=== PATIENT | female | born 1990 | race African-American/Black ===

== ENCOUNTER 2020-07-27 17:34 | Emergency (ER) | payer MEDICAID, SELFPAY ==
[2020-07-27 19:23] VITALS: BP 166/85; PULSE 88; RESP 16; TEMP 35.7; O2SAT 100; BMI 36.6
[2020-07-27 20:15] LABS: Glucose Urine UA NEG (NEG); Leukocyte Esterase Urine NEG (NEG); Nitrite Urine NEG (NEG); Specific Gravity - Urine >= 1.030 (1.005-1.025); Urine Blood NEG (NEG); Urine Ketones NEG (NEG); Urine Protein NEG (NEG-TRACE)
[2020-07-27] MEDS: cefTRIAXone sodium 250 MG, Lidocaine HCl 1 % MPF 0.9 ML IM (20:16)
[2020-07-27] MEDS: Azithromycin 500 MG TABLET 1000 MG PO (20:16)
[2020-07-27 20:17] LABS: Appearance Urine CLEAR; Color Urine YELLOW
[2020-07-27 20:18] LABS: UPreg QC Valid YES; Urine Pregnancy NEGATIVE (NEGATIVE)
--- NOTE | 2020-07-27 20:22 | ED.FEMALEGU ---
HPI - Female Genitourinary General Chief complaint: Urogenital-Female Stated complaint: STD check Time Seen by Provider: 07/27/20 19:58 Source: patient Mode of arrival: ambulatory Limitations: no limitations History of Present Illness HPI Narrative: Patient presents to ED for STD check. Patient states she is asymptomatic. Patient states she came today to be evaluated for STD because her boyfriend told her today that he was positive for chlamydia. Patient denies any vaginal discharge, vaginal bleeding, vaginal lesions, abdominal pain, nausea, vomiting, fever, chills, or flank pain. Related Data Allergies Allergy/AdvReac Type Severity Reaction Status Date / Time No Known Allergies Allergy Verified 07/27/20 19:58 Review of Systems Review of Systems: Yes all other systems are reviewed and are negative Constitutional: Constitutional: Reports as per HPI and Reports no additional constitutional complaints Eyes: Eyes: Reports as per HPI and Reports no additional eye complaints ENT: Reports system reviewed and no additional complaints, except as documented and Reports as per HPI Cardiovascular: Cardiovascular: Reports as per HPI and Reports no additional cardiovascular complaints Respiratory: Respiratory: Reports as per HPI and Reports no additional respiratory complaints Gastrointestinal: Gastrointestinal: Reports as per HPI and Reports no additional gastrointestinal complaints Musculoskeletal: Musculoskeletal: Reports no additional musculoskeletal complaints and Reports as per HPI Neurologic: Reports system reviewed and no additional complaints, except as documented and Reports as per HPI Psychiatric: Psychiatric: Reports no additional psychiatric complaints and Reports as per HPI [facility] Social History Social History Alcohol intake: never Smoking Status: Current every day smoker Use of substances other than those prescribed or required for medical reasons: No Advance Directives: No Advance Directives Information Provided: Yes Physical Exam Vital Signs: Vital Signs: Last Vital Signs Temp 96.3 F L 07/27/20 19:23 Pulse 88 07/27/20 19:23 Resp 16 07/27/20 19:23 BP 166/85 H 07/27/20 19:23 Pulse Ox 100 07/27/20 19:23 Body Mass Index 36.6 Const: General: cooperative, healthy appearing, comfortable, no acute distress, well developed, alert, awake and Physically active Orientation/consciousness: oriented to person, oriented to place and patient oriented x3 HENMT: Head: Yes normal to inspection and Yes No palpable skull fracture present Eyes: General: appearance normal, both eyes and all related structures Neck: Neck: Yes normal visual inspection and Yes full ROM Chest: Chest palpation & inspection: normal inspection of the chest and normal palpation of entire chest wall Resp: Effort & Inspection: normal respiratory effort and able to speak in complete sentences Cardio: Jugular venous distension: no JVD Heart sounds: S1 normal heart sound present and S2 normal heart sound present GI: Inspection: Yes normal to inspection Palpation (GI): Soft to palpation, not firm, nontender, no guarding and not rigid : General: No CVA tenderness and Yes no CVA tenderness Back/Spine/Pelvis: Back: no CVA tenderness, No CVA tenderness and No back tenderness Skin: General skin exam: no rashes or lesions noted and elasticity normal Neuro: General: oriented to person, oriented to place, oriented to time, patient oriented x3, gait normal and CN's II-XI intact bilaterally Cranial nerves: Yes CN's II-XII intact bilaterally Extrem: General: Yes normal to inspection and Yes full ROM Psych: Appearance: grossly normal, well kempt and not disheveled Course Course Course Narrative: Patient will be treated empirically for STIs. Patient given sample for chlamydia gonorrhea. Reevaluation(s) Reevaluation #1: Urinalysis negative for infection or . Time: 20:25 MDM - Female Genitourinary MDM Narrative Medical decision making narrative: STI exposure Lab Data Labs: Lab Results 07/27/20 Range/Units 20:07 Urine Color YELLOW Urine Appearance CLEAR Urine pH 6.0 (5.0-8.0) Ur Specific [place] >= 1.030 H (1.005-1.025) Urine Protein NEG (NEG-TRACE) MG/DL Urine Glucose (UA) NEG (NEG) MG/DL Urine Ketones NEG (NEG) MG/DL Urine Blood NEG (NEG) Urine Nitrite NEG (NEG) Ur Leukocyte Esterase NEG (NEG) Urine Test NEGATIVE (NEGATIVE) Discharge Plan Discharge Clinical Impression: STI (sexually transmitted infection) Patient Disposition: Home, Self-Care Instructions: Sexually Transmitted Diseases (ED) Additional Instructions: Return to the ED immediately for any vaginal bleeding, vaginal lesions, vaginal discharge, abdominal pain, flank pain, fever, chills, or any other concerning symptoms. Please follow-up with the PCP. Interventions: ED Discharge Assessment Last Done: 07/27/20 20:48 Discharge Date/Time: 07/27/20 20:50 Print Language: Vietnamese
[2020-08-21 09:15] LABS: CT PCR NOT DETECTED (Not Detect.); NG PCR NOT DETECTED (Not Detect.)
== END 2020-07-27 20:50 | disposition home or self-care (01) ==
PROVIDERS: Physician Assistant; Emergency Provider Emergency Medicine; PCP Nurse Practitioner Family
DX: Z20.2 Contact with and (suspected) exposure to infections with a predominantly sexual mode of transmission (principal); F17.200 Nicotine dependence, unspecified, uncomplicated
CPT/HCPCS: 81003; 81025; 87491; 87591; 96372; 99284; J0696

== ENCOUNTER 2020-08-27 21:20 | Emergency (ER) | payer MEDICAID, SELFPAY ==
[2020-08-27 21:40] VITALS: BP 131/86; BP 190/40; PULSE 103; PULSE 111; RESP 19; TEMP 36.6; O2SAT 98; BMI 30.9
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
== END 2020-08-27 23:53 | disposition home or self-care (01) ==
PROVIDERS: Emergency Provider Emergency Medicine
DX: F10.929 Alcohol use, unspecified with intoxication, unspecified (principal); Y90.9 Presence of alcohol in blood, level not specified; F43.9 Reaction to severe stress, unspecified; F17.200 Nicotine dependence, unspecified, uncomplicated; Z71.6 Tobacco abuse counseling
CPT/HCPCS: 99284; 99285

== ENCOUNTER 2023-03-05 22:59 | Inpatient (IN) | payer MEDICAID, OTHER, SELFPAY ==
--- NOTE | ~2023-03-05 | XR_ITS ---
EXAMINATION: XR ANKLE, RIGHT CLINICAL INFORMATION: Injury. Surgery. COMPARISON: None available. TECHNIQUE: AP, lateral, and mortise views of the right ankle. FINDINGS: Plate and screw fixation hardware at the distal tibia and fibula. Cannulated screws at the medial malleolus. Hardware appears intact. Alignment is grossly maintained. 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 Diffuse soft tissue swelling at the ankle. XR/XR ankle RT min 3V IMPRESSION: Intact hardware at the distal tibia and fibula. Alignment is grossly maintained.
[2023-03-05 23:08] VITALS: BP 142/86; PULSE 114; O2SAT 97
[2023-03-06 00:08] VITALS: BP 120/72; PULSE 110; RESP 16; TEMP 36.4; O2SAT 98; BMI 39.9
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
[2023-03-06 01:07] LABS: Hemoglobin 13.6 g/dl (12.0-16.0); Mean Corpuscular HGB Conc 33.2 g/dl (31.0-35.0); Mean Corpuscular Hemoglobin 31.1 pg (27.0-33.0); Mean Corpuscular Volume 93.6 fL (80.0-98.0); Mean Platelet Volume 9.6 fL (9.4-12.3); Platelet Count 335 X10*3/uL (160-400); Red Blood Count 4.38 X10*6/uL (4.20-5.50); Red Cell Distribution Width 14.7 % (11.0-16.0); White Blood Count 8.1 X10*3/uL (4.8-10.8)
[2023-03-06 01:26] LABS: Ethanol 69 mg/dL
[2023-03-06 01:50] LABS: Alanine Aminotransferase 53 U/L (0-31); Alkaline Phosphatase 41 U/L (39-117); Anion Gap 18 (12-20); Aspartate Amino Transferase 42 U/L (5-31); Bilirubin Total 0.5 mg/dL (0.0-1.0); Blood Urea Nitrogen 11 mg/dL (9-16); Calcium 10.3 mg/dL (8.4-10.2); Carbon Dioxide 25 mmol/L (22-29); Chloride 102 mmol/L (96-108); Glucose Random 103 mg/dL (60-115); Potassium 4.1 mmol/L (3.3-5.1); Sodium 141 mmol/L (135-145); Total Protein 8.4 g/dL (6.5-8.0)
[2023-03-06 02:19] LABS: Creatinine Clr Calc Pharmacy 93.5; Estimated Glomerular Filt Rate > 60
[2023-03-06 02:21] VITALS: BP 106/71; PULSE 99; RESP 16; TEMP 37.3; O2SAT 99
--- NOTE | 2023-03-06 06:44 | PC.NURSE ---
Patient just got transferred from main Ed, ambulates steady with walker, care consult ordered/pending evaluation, behavior non concerning, urine pending, patient currently not on any medication, VSS, will continue to monitor
--- NOTE | 2023-03-06 09:12 | PC.NURSE ---
Pt in bed sleeping. Enc. pt to get OOB and shower.
[2023-03-06 09:40] LABS: Appearance Urine Cloudy; Color Urine Yellow; Glucose Urine UA Negative (Negative); Leukocyte Esterase Urine Negative (Negative); Nitrite Urine Negative (Negative); Specific Gravity - Urine >= 1.030 (1.005-1.025); Urine Blood Negative (Negative); Urine Ketones Negative (Negative); Urine Protein Trace mg/dL (Neg-Trace)
[2023-03-06 09:43] LABS: UPreg QC Valid YES; Urine Pregnancy NEGATIVE (NEGATIVE)
[2023-03-06 09:49] LABS: Amphetamine Screen Urine Not Detected (Not Detect); Barbiturates, Urine Not Detected (Not Detect); Benzodiazepines Screen Urine Not Detected (Not Detect); Cannabinoid Screen Urine POSITIVE (Not Detect); Cocaine Screen Urine POSITIVE (Not Detect); Fentanyl, urine POSITIVE (Not Detect); Opiate Screen Urine Not Detected (Not Detect); Phencyclidine Screen Urine Not Detected (Not Detect)
--- NOTE | 2023-03-06 11:01 | ECG_ITS ---
Test Reason : QTC CHANGES Blood Pressure : / mmHG Vent. Rate : 090 BPM Atrial Rate : 090 BPM P-R Int : 138 ms QRS Dur : 086 ms QT Int : 402 ms P-R-T Axes : 047 027 009 degrees QTc Int : 491 ms Normal sinus rhythm Prolonged QT Abnormal ECG No previous ECGs available Referred By: Jaya Otero Electronically Signed By:NAILA DOWLING MD
[2023-03-06 11:25] LABS: COVID-19 Test Negative (Negative); IDNOW Serial# BCCEAD1C
--- NOTE | 2023-03-06 16:32 | PC.NURSE ---
RN to RN report given to Trixie NESBITT. Plan to admit to room 307-2. Awaiting MD orders for admission to be entered. Pt sleeping at this time with no acute distress noted.
[2023-03-06 17:50] VITALS: BP 135/84; PULSE 80; TEMP 36.6; O2SAT 97
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
[2023-03-06 20:00] VITALS: BP 126/68; PULSE 98; RESP 18; TEMP 36.7; O2SAT 99
[2023-03-06] MEDS: hydrOXYzine HCL 25 MG TABLET PO (20:11)
[2023-03-06] MEDS: Thiamine HCL 100 MG TABLET PO (20:12)
[2023-03-06] MEDS: Acetaminophen 325 MG TABLET 650 MG PO (20:12)
[2023-03-06] MEDS: traZODone HCL 50 MG TABLET PO (20:16)
--- NOTE | 2023-03-07 | ECG_ITS ---
Test Reason : ECT CLEARANCE Blood Pressure : / mmHG Vent. Rate : 104 BPM Atrial Rate : 104 BPM P-R Int : 134 ms QRS Dur : 074 ms QT Int : 364 ms P-R-T Axes : 075 064 016 degrees QTc Int : 478 ms Sinus tachycardia Otherwise normal ECG When compared with ECG of 06-MAR-2023 11:05, No significant change was found Referred By: Adam Stephens Electronically Signed By:NAILA DOWLING MD
--- NOTE | 2023-03-07 08:59 | PHA.MEDREC ---
Pharmacy Consult ? Medication Reconciliation Pharmacy has completed the medication reconciliation. MD reports pt off meds for 6 months/no home meds.
[2023-03-07 09:00] VITALS: BP 128/82; PULSE 78; RESP 16; TEMP 36.9; O2SAT 97
[2023-03-07] MEDS: LORazepam 1 MG TABLET PO ×2 (10:27→15:57)
[2023-03-07] MEDS: Thiamine HCL 100 MG TABLET PO (10:27)
[2023-03-07] MEDS: buPROPion HCl XL 150 MG TAB.ER.24H PO (12:45)
[2023-03-07 13:29] VITALS: BMI 38.0
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
[2023-03-07 15:50] VITALS: PULSE 92
[2023-03-07 18:00] VITALS: BP 128/62; PULSE 76; RESP 18; TEMP 36.6; O2SAT 95
[2023-03-07] MEDS: traZODone HCL 50 MG TABLET PO (20:56)
[2023-03-08] MEDS: Venlafaxine HCl ER 37.5 MG CAP.ER.24H PO (10:22)
[2023-03-08] MEDS: buPROPion HCl XL 150 MG TAB.ER.24H PO (10:22)
[2023-03-08] MEDS: Thiamine HCL 100 MG TABLET PO (10:22)
[2023-03-08] MEDS: Ibuprofen 600 MG TABLET PO (10:27)
[2023-03-08] MEDS: LORazepam 1 MG TABLET PO ×3 (10:27→21:11)
[2023-03-08] MEDS: Buprenorphine/Naloxone 8/2 mg FILM 1 FILM SUBLINGUAL ×2 (10:53→18:51)
--- NOTE | 2023-03-08 11:42 | PM.PSYDC ---
DS: Providers Provider Date of Service: 03/08/23 Date of admission: 03/06/23 16:57 Primary care physician: None Physician Consults: 03/07/23 11:43 Consult to Hospitalist Routine Comment: Consulting Provider: Hospitalist Reason For Exam: ECT clearance DS: Diagnosis Discharge Diagnosis (1) Pre-op evaluation: Status: Acute DS: Medications Discharge Medications Home Medications: Previous Rx's Medication Instructions Recorded bupropion HCl 150 mg 24 hr tablet, 150 mg PO DAILY 30 days #30 tabs 03/08/23 extended release hydroxyzine HCl 25 mg tablet 25 mg PO BID PRN Anxiety 30 days 03/08/23 #60 tabs thiamine mononitrate (vit B1) 100 100 mg PO DAILY 30 days #30 tabs 03/08/23 mg tablet trazodone 50 mg tablet 50 mg PO BEDTIME MRX1 30 days #30 03/08/23 tabs venlafaxine 37.5 mg 37.5 mg PO DAILY 30 days #30 caps 03/08/23 capsule,extended release 24 hr Mental Status Exam Mental Status Exam Narrative: calm, cooperative. adequately dressed and groomed. hospital attire. no PMA/PMR. speech nml rate, amount, loudness, tone, latency. thoughts linear and logical. affect constricted, normo-intense, non-labile. mood i'm fine. denies SI/SIBI/HI/AVH. Data Data Completed and Pending Completed studies during hospitalization [Text1]: 03/06/23 03/06/23 03/06/23 00:59 00:59 00:59 WBC 8.1 RBC 4.38 Hgb 13.6 Hct 41.0 MCV 93.6 MCH 31.1 MCHC 33.2 RDW 14.7 Plt Count 335 MPV 9.6 Absolute Nucleated RBC 0.000 Nucleated RBC % (auto) 0.0 Sodium 141 Potassium 4.1 Chloride 102 Carbon Dioxide 25 Anion Gap 18 BUN 11 Creatinine 1.05 Estim Creat Clear Calc 93.5 Estimated GFR > 60 Random Glucose 103 Calcium 10.3 H Total Bilirubin 0.5 AST 42 H ALT 53 H Alkaline Phosphatase 41 Total Protein 8.4 H Albumin 5.0 Urine Color Urine Appearance Urine pH Ur Specific [place] Urine Protein Urine Glucose (UA) Urine Ketones Urine Blood Urine Nitrite Ur Leukocyte Esterase Urine Test Urine Opiates Screen Urine Fentanyl Screen Ur Barbiturates Screen Ur Phencyclidine Scrn Ur Amphetamines Screen U Benzodiazepines Scrn Urine Cocaine Screen U Marijuana (THC) Screen Ethyl Alcohol 69 COVID-19 (JUDE) COVID-19 [employer] 03/06/23 03/06/23 03/06/23 09:32 09:32 09:32 WBC RBC Hgb Hct MCV MCH MCHC RDW Plt Count MPV Absolute Nucleated RBC Nucleated RBC % (auto) Sodium Potassium Chloride Carbon Dioxide Anion Gap BUN Creatinine Estim Creat Clear Calc Estimated GFR Random Glucose Calcium Total Bilirubin AST ALT Alkaline Phosphatase Total Protein Albumin Urine Color Yellow Urine Appearance Cloudy Urine pH 6.0 Ur Specific [place] >= 1.030 H Urine Protein Trace Urine Glucose (UA) Negative Urine Ketones Negative Urine Blood Negative Urine Nitrite Negative Ur Leukocyte Esterase Negative Urine Test NEGATIVE Urine Opiates Screen Not Detected Urine Fentanyl Screen POSITIVE H Ur Barbiturates Screen Not Detected Ur Phencyclidine Scrn Not Detected Ur Amphetamines Screen Not Detected U Benzodiazepines Scrn Not Detected Urine Cocaine Screen POSITIVE H U Marijuana (THC) Screen POSITIVE H Ethyl Alcohol COVID-19 (JUDE) COVID-19 [employer] 03/06/23 11:07 WBC RBC Hgb Hct MCV MCH MCHC RDW Plt Count MPV Absolute Nucleated RBC Nucleated RBC % (auto) Sodium Potassium Chloride Carbon Dioxide Anion Gap BUN Creatinine Estim Creat Clear Calc Estimated GFR Random Glucose Calcium Total Bilirubin AST ALT Alkaline Phosphatase Total Protein Albumin Urine Color Urine Appearance Urine pH Ur Specific [place] Urine Protein Urine Glucose (UA) Urine Ketones Urine Blood Urine Nitrite Ur Leukocyte Esterase Urine Test Urine Opiates Screen Urine Fentanyl Screen Ur Barbiturates Screen Ur Phencyclidine Scrn Ur Amphetamines Screen U Benzodiazepines Scrn Urine Cocaine Screen U Marijuana (THC) Screen Ethyl Alcohol COVID-19 (JUDE) Negative [employer] Com See Note Imaging Diagnostic Imaging Impressions Ankle X-Ray 03/06/23 00:57 IMPRESSION: Intact hardware at the distal tibia and fibula. Alignment is grossly maintained. DS: Summary Time Spent with Patient Time attestation: Total time managing care of this patient today ____ minutes. Discharge Plan Discharge Anticipated Discharge Date/Time: 03/08/23 11:40 Patient Disposition: Care Home Discharge Diagnosis: PTSD, Chronic Polysubstance Use Disorder Referrals: Physician,None [Primary Care Provider] - 1 Week Discharge Medications: New venlafaxine 37.5 mg Capsule,Extended Release 24hr 37.5 mg PO DAILY 30 Days Qty: 30 0RF trazodone 50 mg Tablet 50 mg PO BEDTIME MRX1 30 Days Qty: 30 0RF hydroxyzine HCl 25 mg Tablet 25 mg PO BID PRN (Reason: Anxiety) 30 Days Qty: 60 0RF bupropion HCl 150 mg Tablet Extended Release 24 Hr 150 mg PO DAILY 30 Days Qty: 30 0RF thiamine mononitrate (vit B1) 100 mg Tablet 100 mg PO DAILY 30 Days Qty: 30 0RF Discharge Orders: Discharge Order (Routine); Ordered 03/08/23 Ordered By: Adam Stephens Diet: Advance to usual diet Activity on Discharge: As tolerated Stand Alone Forms: Patient Portal Discharge page Care Plan Goals: remain safe, sober, and stable in the outpatient treatment setting Health Concerns: ankle injury Plan of Treatment: take medications as prescribed, attend appointments as scheduled Assessment: not at imminent risk of harm to self or others
--- NOTE | 2023-03-08 13:06 | HO.PSYCHPN ---
Subjective Subjective Date of Service: 03/08/23 Reason For Visit: SI Interim History: asking to leave today and then reversing her decision multiple times. craving seemed to be the motivating factor. pt was started on suboxone 8 mg BID at her request. endorses craving. per staff, anxiety. wondering how she is going to stop drinking. poor PO intake. overheard dry heaving in her bathroom. active, appropriate. upset at missing clothing. anx/dep 05/21. Mental Status Exam Mental Status Exam Narrative: calm, cooperative. adequately dressed and groomed. hospital attire. no PMA/PMR. speech nml rate, amount, loudness, tone, latency. thoughts linear and logical. affect constricted, normo-intense, non-labile. mood I'm fine. denies SI/SIBI/HI/AVH. Diagnostics Vital Signs (24Hr): Vital Signs - 24 hr 03/07/23 18:00 Temperature 97.9 F Pulse Rate 76 Respiratory Rate 18 Blood Pressure 128/62 Pulse Oximetry 95 Oxygen Delivery Method Room Air BMI result Body Mass Index 38.0 Labs 03/06/23 00:59 03/06/23 00:59 Imaging Radiology Impressions: ITS Impressions Ankle X-Ray 03/06/23 00:57 IMPRESSION: Intact hardware at the distal tibia and fibula. Alignment is grossly maintained. Medications Medications Current Medications Al Hydroxide/Mg Hydroxide (Magnesium Hydrox/Alum Hydrox 30 Ml Oral.Susp) 30 ml PO Q6H PRN PRN Reason: Heartburn/Nausea Buprenorphine/Naloxone (Buprenorphine/Naloxone 8/2 Mg Film) 1 film SUBLINGUAL BID@0800,1800 [facility] Last Admin: 03/08/23 10:53 Dose: 1 film Bupropion HCl (Bupropion Hcl Xl 150 Mg Tab.Er.24h) 150 mg PO DAILY [facility] Last Admin: 03/08/23 10:22 Dose: 150 mg Hydroxyzine HCl (Hydroxyzine Hcl 50 Mg Tablet) 50 mg PO Q6H PRN PRN Reason: Anxiety Ibuprofen (Ibuprofen 600 Mg Tablet) 600 mg PO Q6H PRN PRN Reason: moderate pain Last Admin: 03/08/23 10:27 Dose: 600 mg Magnesium Hydroxide (Milk Of Magnesia 30 Ml Oral.Susp) 30 ml PO DAILY PRN PRN Reason: Constipation Nicotine Polacrilex (Nicotine Polacrilex 2 Mg Gum) 4 mg BUCCAL Q2H PRN PRN Reason: Nicotine Cravings Thiamine HCl (Thiamine Hcl 100 Mg Tablet) 100 mg PO DAILY [facility] Last Admin: 03/08/23 10:22 Dose: 100 mg Trazodone HCl (Trazodone Hcl 50 Mg Tablet) 50 mg PO BEDTIME MRX1 PRN PRN Reason: Insomnia Last Admin: 03/07/23 20:56 Dose: 50 mg Venlafaxine HCl (Venlafaxine Hcl Er 37.5 Mg Cap.Er.24h) 37.5 mg PO DAILY [facility] Last Admin: 03/08/23 10:22 Dose: 37.5 mg Allergies Allergies Allergy/AdvReac Type Severity Reaction Status Date / Time No Known Allergies Allergy Verified 07/27/20 19:58 Assessment & Plan Assessment & Plan (1) Pre-op evaluation: Status: Acute Code(s): Z01.818 - Encounter for other preprocedural examination Assessment and Plan: 03/07:? start wellbutrin 150 mg daily.? start effexor 37.5 mg daily.? T/C ECT.? prepare for possibility of ECT with repeat ekg and medical consult. ? case discussed with Dr. Corona. 03/08: medically cleared for ECT. states today she will not be staying long enough to do ECT and so retracts her request. asks to leave, then decides to stay, repeats the process again. will be told to sign 3-day notice if she asks to leave again. required only 2 mg ativan yesterday, got 1 mg today. CIWA KY'ed and ativan stopped. denies withdrawal from opioids but does admit to cravings. started on suboxone 8 mg BID. Reason for continued inpatient stay Substantial Risk for: inability to function and rapid decompensation Time Spent With Patient Time: Total time managing care of this patient today __35__ minutes.
[2023-03-08] MEDS: hydrOXYzine HCL 50 MG TABLET PO ×2 (14:29→21:11)
[2023-03-08] MEDS: Ondansetron ODT 4 MG TAB.RAPDIS TRANSLINGU (16:11)
[2023-03-08] MEDS: cloNIDine HCL 0.1 MG TABLET PO ×2 (16:11→21:10)
[2023-03-08 16:18] VITALS: BP 122/77; PULSE 84; RESP 18; TEMP 36.6; O2SAT 100
[2023-03-08 20:13] VITALS: BP 116/76; PULSE 83; RESP 18; TEMP 36.6; O2SAT 96
[2023-03-08] MEDS: traZODone HCL 50 MG TABLET PO (21:11)
[2023-03-09 06:00] VITALS: BP 127/71; PULSE 86; TEMP 36.3; O2SAT 97
[2023-03-09] MEDS: LORazepam 1 MG TABLET PO ×3 (07:52→20:55)
[2023-03-09] MEDS: cloNIDine HCL 0.1 MG TABLET PO ×2 (07:52→20:55)
[2023-03-09] MEDS: Thiamine HCL 100 MG TABLET PO (08:54)
[2023-03-09] MEDS: Buprenorphine/Naloxone 8/2 mg FILM 1 FILM SUBLINGUAL ×2 (08:54→18:25)
[2023-03-09] MEDS: Venlafaxine HCl ER 37.5 MG CAP.ER.24H PO (08:54)
[2023-03-09] MEDS: buPROPion HCl XL 150 MG TAB.ER.24H PO (08:54)
--- NOTE | 2023-03-09 11:11 | HO.PSYCHPN ---
Subjective Subjective Date of Service: 03/09/23 Reason For Visit: SI Subjective Notes: Conditional Voluntary Interim History: The nursing staff reported the patient was angry and agitated a [place] with the staff because she wanted to be discharged she felt at clear information was not given. She is worried about finding probe pressure Elder. The staff has noticed poor appetite but she denies suicidal or homicidal thoughts. She was supposed to be discharged yesterday but she change her mind. In the evening, yesterday, she received a phone call and reported that her ex partner was positive to Trichomonas and requested STI testing. On interview, the patient asked for Klonopin, she was call so for medications for her diabetes and she stated that she did not receive any medical checkup on admission. Even though, on the chart there is a consult from the hospitalist for possible ECT. Mental Status Exam Mental Status Exam Patient Appearance: Appropriate Patient Orientation: Person and Situation Level of Consciousness: Awake and Appropriate Patient Behavior: Guarded and Passive Mood Description: Withdrawn Affect Description: Calm Ability to Follow Directions: Good Speech Pattern: Clear Hallucinations: None Delusions: Not Present Thought Process: Linear Thought Content: negative for [place] or positive for Circumstantial Judgement: Fair Diagnostics Vital Signs (24Hr): Vital Signs - 24 hr 03/08/23 16:18 03/08/23 20:13 03/09/23 06:00 Temperature 97.8 F 97.8 F 97.3 F Pulse Rate 84 83 86 Respiratory Rate 18 18 Blood Pressure 122/77 116/76 127/71 Pulse Oximetry 100 96 97 Oxygen Delivery Method Room Air Room Air Room Air BMI result Body Mass Index 38.0 Labs 03/06/23 00:59 03/06/23 00:59 Imaging Radiology Impressions: ITS Impressions Ankle X-Ray 03/06/23 00:57 IMPRESSION: Intact hardware at the distal tibia and fibula. Alignment is grossly maintained. Medications Medications Current Medications Al Hydroxide/Mg Hydroxide (Magnesium Hydrox/Alum Hydrox 30 Ml Oral.Susp) 30 ml PO Q6H PRN PRN Reason: Heartburn/Nausea Buprenorphine/Naloxone (Buprenorphine/Naloxone 8/2 Mg Film) 1 film SUBLINGUAL BID@0800,1800 [facility] Last Admin: 03/09/23 08:54 Dose: 1 film Bupropion HCl (Bupropion Hcl Xl 150 Mg Tab.Er.24h) 150 mg PO DAILY [facility] Last Admin: 03/09/23 08:54 Dose: 150 mg Clonidine HCl (Clonidine Hcl 0.1 Mg Tablet) 0.1 mg PO Q2H PRN; Protocol PRN Reason: anxiety/signs of opioid withdrawal Last Admin: 03/09/23 07:52 Dose: 0.1 mg Dicyclomine HCl (Dicyclomine Hcl 10 Mg Capsule) 10 mg PO QIDACHS PRN PRN Reason: cramping Hydroxyzine HCl (Hydroxyzine Hcl 50 Mg Tablet) 50 mg PO Q6H PRN PRN Reason: Anxiety Last Admin: 03/08/23 21:11 Dose: 50 mg Ibuprofen (Ibuprofen 600 Mg Tablet) 600 mg PO Q6H PRN PRN Reason: moderate pain Last Admin: 03/08/23 10:27 Dose: 600 mg Lorazepam (Lorazepam 1 Mg Tablet) 1 mg PO Q4H PRN PRN Reason: anxiety/agitation Last Admin: 03/09/23 07:52 Dose: 1 mg Magnesium Hydroxide (Milk Of Magnesia 30 Ml Oral.Susp) 30 ml PO DAILY PRN PRN Reason: Constipation Nicotine Polacrilex (Nicotine Polacrilex 2 Mg Gum) 4 mg BUCCAL Q2H PRN PRN Reason: Nicotine Cravings Ondansetron HCl (Ondansetron Odt 4 Mg Tab.Rapdis) 4 mg TRANSLINGU Q6H PRN PRN Reason: Nausea Last Admin: 03/08/23 16:11 Dose: 4 mg Thiamine HCl (Thiamine Hcl 100 Mg Tablet) 100 mg PO DAILY [facility] Last Admin: 03/09/23 08:54 Dose: 100 mg Trazodone HCl (Trazodone Hcl 50 Mg Tablet) 50 mg PO BEDTIME MRX1 PRN PRN Reason: Insomnia Last Admin: 03/08/23 21:11 Dose: 50 mg Venlafaxine HCl (Venlafaxine Hcl Er 37.5 Mg Cap.Er.24h) 37.5 mg PO DAILY [facility] Last Admin: 03/09/23 08:54 Dose: 37.5 mg Allergies Allergies Allergy/AdvReac Type Severity Reaction Status Date / Time No Known Allergies Allergy Verified 07/27/20 19:58 Assessment & Plan Assessment & Plan (1) Pre-op evaluation: Status: Acute Code(s): Z01.818 - Encounter for other preprocedural examination Assessment and Plan: 03/07:? start wellbutrin 150 mg daily.? start effexor 37.5 mg daily.? T/C ECT.? prepare for possibility of ECT with repeat ekg and medical consult. ? case discussed with Dr. Corona. 03/08: medically cleared for ECT. states today she will not be staying long enough to do ECT and so retracts her request. asks to leave, then decides to stay, repeats the process again. will be told to sign 3-day notice if she asks to leave again. required only 2 mg ativan yesterday, got 1 mg today. CIWA VA'ed and ativan stopped. denies withdrawal from opioids but does admit to cravings. started on suboxone 8 mg BID. 03/09 she complained that her partner was positive Trichomonas so STI testing was ordered today. Waiting for results, she requested also Klonopin, Ozempic another medications since she wants to lose weight. Reason for continued inpatient stay Substantial Risk for: inability to function, rapid decompensation and med/psych decompensation Time Spent With Patient Time: Total time managing care of this patient today __20__ minutes.
[2023-03-09] MEDS: Nicotine Polacrilex 2 MG GUM 4 MG BUCCAL (11:45)
[2023-03-09] MEDS: hydrOXYzine HCL 50 MG TABLET PO ×2 (13:22→20:55)
[2023-03-09] MEDS: Ondansetron ODT 4 MG TAB.RAPDIS TRANSLINGU (13:23)
[2023-03-09 14:35] LABS: BV Int Neg Control Negative (Negative); BV Int Pos Control Positive (Positive)
[2023-03-09 14:41] LABS: CT PCR NOT DETECTED (Not Detect.); NG PCR NOT DETECTED (Not Detect.)
[2023-03-09 20:50] VITALS: BP 120/61; PULSE 68; RESP 18; TEMP 36.6; O2SAT 98
[2023-03-09] MEDS: traZODone HCL 50 MG TABLET PO (20:55)
[2023-03-10] MEDS: Buprenorphine/Naloxone 8/2 mg FILM 1 FILM SUBLINGUAL ×2 (07:55→18:08)
[2023-03-10 08:35] VITALS: BP 140/85; PULSE 89; RESP 18; TEMP 36.2; O2SAT 98
[2023-03-10] MEDS: Ondansetron ODT 4 MG TAB.RAPDIS TRANSLINGU (08:36)
[2023-03-10] MEDS: LORazepam 1 MG TABLET PO ×3 (08:36→20:32)
[2023-03-10] MEDS: Ibuprofen 600 MG TABLET PO ×2 (08:36→20:32)
[2023-03-10] MEDS: buPROPion HCl XL 150 MG TAB.ER.24H PO (08:37)
[2023-03-10] MEDS: Thiamine HCL 100 MG TABLET PO (08:37)
[2023-03-10] MEDS: Venlafaxine HCl ER 37.5 MG CAP.ER.24H PO (08:37)
[2023-03-10] MEDS: hydrOXYzine HCL 50 MG TABLET PO ×2 (10:08→19:12)
--- NOTE | 2023-03-10 10:27 | HO.PSYCHPN ---
Subjective Subjective Date of Service: 03/10/23 Reason For Visit: SI Subjective Notes: Conditional Voluntary Interim History: The nursing staff reported the patient had been up a visible anxious wants to go to a program at [place]. She has been compliant with treatment. On interview the patient reported that she has ADHD and requested Adderall. I explained her that if I do not see that on her mass but I will not started today peer she always ask for controlled substances yesterday she was asking for Klonopin. No new symptoms. Mental Status Exam Mental Status Exam Patient Appearance: Appropriate Patient Orientation: Person, Place and Situation Level of Consciousness: Awake and Appropriate Patient Behavior: Guarded Mood Description: Calm Affect Description: Constricted Patient Cognition Impaired: Yes Ability to Follow Directions: Good Speech Pattern: Clear Hallucinations: None Delusions: Not Present Thought Process: Goal Oriented and Linear Thought Content: positive for Circumstantial Judgement: Fair Diagnostics Vital Signs (24Hr): Vital Signs - 24 hr 03/09/23 20:50 03/10/23 08:35 Temperature 97.8 F 97.2 F Pulse Rate 68 89 Respiratory Rate 18 18 Blood Pressure 120/61 140/85 H Pulse Oximetry 98 98 Oxygen Delivery Method Room Air Room Air BMI result Body Mass Index 38.0 Labs 03/06/23 00:59 03/06/23 00:59 Labs: Laboratory Results - last 48 hr 03/08/23 03/08/23 18:30 18:30 Jessica species DNA Negative Chlam trachomat DNA PCR NOT DETECTED Gardnerella DNA Probe Negative N.gonorrhoeae DNA (PCR) NOT DETECTED Trichomonas DNA Probe Negative Imaging Radiology Impressions: ITS Impressions Ankle X-Ray 03/06/23 00:57 IMPRESSION: Intact hardware at the distal tibia and fibula. Alignment is grossly maintained. Medications Medications Current Medications Al Hydroxide/Mg Hydroxide (Magnesium Hydrox/Alum Hydrox 30 Ml Oral.Susp) 30 ml PO Q6H PRN PRN Reason: Heartburn/Nausea Buprenorphine/Naloxone (Buprenorphine/Naloxone 8/2 Mg Film) 1 film SUBLINGUAL BID@0800,1800 [facility] Last Admin: 03/10/23 07:55 Dose: 1 film Bupropion HCl (Bupropion Hcl Xl 150 Mg Tab.Er.24h) 150 mg PO DAILY [facility] Last Admin: 03/10/23 08:37 Dose: 150 mg Clonidine HCl (Clonidine Hcl 0.1 Mg Tablet) 0.1 mg PO Q2H PRN; Protocol PRN Reason: anxiety/signs of opioid withdrawal Last Admin: 03/09/23 20:55 Dose: 0.1 mg Dicyclomine HCl (Dicyclomine Hcl 10 Mg Capsule) 10 mg PO QIDACHS PRN PRN Reason: cramping Hydroxyzine HCl (Hydroxyzine Hcl 50 Mg Tablet) 50 mg PO Q6H PRN PRN Reason: Anxiety Last Admin: 03/10/23 10:08 Dose: 50 mg Ibuprofen (Ibuprofen 600 Mg Tablet) 600 mg PO Q6H PRN PRN Reason: moderate pain Last Admin: 03/10/23 08:36 Dose: 600 mg Lorazepam (Lorazepam 1 Mg Tablet) 1 mg PO Q4H PRN PRN Reason: anxiety/agitation Last Admin: 03/10/23 08:36 Dose: 1 mg Magnesium Hydroxide (Milk Of Magnesia 30 Ml Oral.Susp) 30 ml PO DAILY PRN PRN Reason: Constipation Nicotine Polacrilex (Nicotine Polacrilex 2 Mg Gum) 4 mg BUCCAL Q2H PRN PRN Reason: Nicotine Cravings Last Admin: 03/09/23 11:45 Dose: 4 mg Ondansetron HCl (Ondansetron Odt 4 Mg Tab.Rapdis) 4 mg TRANSLINGU Q6H PRN PRN Reason: Nausea Last Admin: 03/10/23 08:36 Dose: 4 mg Thiamine HCl (Thiamine Hcl 100 Mg Tablet) 100 mg PO DAILY [facility] Last Admin: 03/10/23 08:37 Dose: 100 mg Trazodone HCl (Trazodone Hcl 50 Mg Tablet) 50 mg PO BEDTIME MRX1 PRN PRN Reason: Insomnia Last Admin: 03/09/23 20:55 Dose: 50 mg Venlafaxine HCl (Venlafaxine Hcl Er 37.5 Mg Cap.Er.24h) 37.5 mg PO DAILY [facility] Last Admin: 03/10/23 08:37 Dose: 37.5 mg Allergies Allergies Allergy/AdvReac Type Severity Reaction Status Date / Time No Known Allergies Allergy Verified 07/27/20 19:58 Assessment & Plan Assessment & Plan (1) Pre-op evaluation: Status: Acute Code(s): Z01.818 - Encounter for other preprocedural examination Assessment and Plan: 03/07:? start wellbutrin 150 mg daily.? start effexor 37.5 mg daily.? T/C ECT.? prepare for possibility of ECT with repeat ekg and medical consult. ? case discussed with Dr. Corona. 03/08: medically cleared for ECT. states today she will not be staying long enough to do ECT and so retracts her request. asks to leave, then decides to stay, repeats the process again. will be told to sign 3-day notice if she asks to leave again. required only 2 mg ativan yesterday, got 1 mg today. CIWA DC'ed and ativan stopped. denies withdrawal from opioids but does admit to cravings. started on suboxone 8 mg BID. 03/09 she complained that her partner was positive Trichomonas so STI testing was ordered today. Waiting for results, she requested also Klonopin, Ozempic another medications since she wants to lose weight. 03/10 she asked for ADHD medications and as for Adderall according to [facility] she does not have any valid script for stimulants. Consult to hospitalist was ordered yesterday. Reason for continued inpatient stay Substantial Risk for: inability to function, rapid decompensation and med/psych decompensation Time Spent With Patient Time: Total time managing care of this patient today _20___ minutes.
[2023-03-10] MEDS: cloNIDine HCL 0.1 MG TABLET PO ×2 (11:09→14:00)
--- NOTE | 2023-03-10 11:50 | P.EN_ITS ---
Documented by User: [email or web address] Jama 03/10/23 11:58 Event Note Date of Service: 03/10/23 Event Note: Patient seen for medical consult for diabetes and obesity. Patient states she has a diagnosis of diabetes from 2 years ago when she was in [place], however does not believe she was on any medication for treatment. Patient also complaints of being obese, with some recent weight gain though she is unable to quantify exactly how much. Patient asks if she can be treated with Ozempic but told her that would need to be prescribed by her primary care and we would 1st need to draw labs to determine if she is indeed diabetic. Patient's random glucose on 03/06/2023 was WNL at 103. We also discussed other options for weight loss including diet and exercise. Discussed increasing amount time spent walking, reducing portion sizes during meals, and trying to eliminate/reduce hig h salt and sugar snacking. Patient also inquired about bariatric surgery and having a ?tummy tuck?. At this time is unclear with the patient is diabetic or not, will recheck POC and get an A1c. Time Spent With Patient Time: Total time managing care of this patient today ____ minutes. Documented by User: Sabas Mercer DO 03/10/23 13:44 Event Note Date of Service: 03/10/23
[2023-03-10 12:28] LABS: Glucose, Whole Blood 104 mg/dL (60-115)
[2023-03-10 12:44] LABS: Estimated Average Glucose 97 mg/dL
[2023-03-10 19:55] VITALS: BP 116/74; PULSE 91; RESP 18; TEMP 36.3; O2SAT 100
[2023-03-10] MEDS: traZODone HCL 50 MG TABLET PO ×2 (20:33→23:25)
[2023-03-11 00:40] VITALS: BP 133/89; PULSE 98
[2023-03-11] MEDS: LORazepam 1 MG TABLET PO ×3 (00:46→15:00)
[2023-03-11] MEDS: cloNIDine HCL 0.1 MG TABLET PO ×3 (00:46→15:00)
[2023-03-11 04:01] LABS: Syphilis Screen Nonreactive (Nonreactive)
[2023-03-11 04:34] LABS: HIV AB/AG Nonreactive (Nonreactive); HIV Num 1 0.07 S/CO (0.00-0.99)
[2023-03-11 08:09] VITALS: BP 140/91; PULSE 88; RESP 18; TEMP 36.3; O2SAT 99
[2023-03-11] MEDS: buPROPion HCl XL 150 MG TAB.ER.24H PO (08:10)
[2023-03-11] MEDS: Buprenorphine/Naloxone 8/2 mg FILM 1 FILM SUBLINGUAL ×2 (08:10→18:06)
[2023-03-11] MEDS: Venlafaxine HCl ER 37.5 MG CAP.ER.24H PO (08:10)
[2023-03-11] MEDS: Thiamine HCL 100 MG TABLET PO (08:10)
--- NOTE | 2023-03-11 12:05 | PM.EVENT ---
Event Note Date of Service: 03/11/23 Event Note: 32 year old female with history of polysubstance abuse and schizophrenia admitted to psychiatry with consult placed to hospitalist service for ECT evaluation. The patient denies any history seizures, CHF, CAD. She denies any lightheadedness, palpitations, sob, or chest pain. Able to ascend a flight of stairs and ambulate distances without any [place] or chest pain. At this time of evaluation, there is no medical contraindication to patient undergoing ECT. Time Spent With Patient Time: Total time managing care of this patient today ____ minutes.
--- NOTE | 2023-03-11 16:01 | HO.PSYCHPN ---
Subjective Subjective Date of Service: 03/11/23 Reason For Visit: SI Subjective Notes: Conditional Voluntary Interim History: Reviewed in team and Dr. Corona. Pt reports feeling pissed off at social work coordinator d/t feeling unheard and being told what's good for me . Patient turned down placement at [facility] and was told she was not accepted at [facility]. Pt became tearful and upset, asking to be discharged; stated I just want to leave and go to a different hospital. I don't want to go to [facility].I don't want anything from you guys. I will be fine and I'll go to [facility] . Will assess patient tomorrow for readiness for discharge. Medication Compliance: Yes Side effects from medications: No Attending Groups: No Review of Systems Constitutional: Reports as per HPI Eyes: Reports as per HPI Reports as per HPI Cardiovascular: Reports as per HPI Respiratory: Reports as per HPI Gastrointestinal: Reports as per HPI Genitourinary: Reports as per HPI Musculoskeletal: Reports as per HPI Skin/Breast: Reports as per HPI Reports as per HPI Psychiatric: Reports as per HPI Endocrine: Reports as per HPI Hematologic/Lymphatic: Reports as per HPI Allergic/Immunologic: Reports as per HPI Mental Status Exam Mental Status Exam Narrative: Pt is alert and oriented; behavior is irritable; dressed in casual attire; mood is described as irritated ; eye contact appropriate; Speech is normal rate, volume and prosody and not pressured; no psychomotor agitation/retardation present; thought process is organized; Thought content is on tx; otherwise pertinent to relevant topics and without any delusional content, paranoid ideations or grandiosity; denies any SI/HI. There is no evidence of perceptual disturbance. Patients insight and judgment are poor. Diagnostics Vital Signs (24Hr): Vital Signs - 24 hr 03/10/23 19:55 03/11/23 00:40 03/11/23 08:09 Temperature 97.4 F 97.4 F Pulse Rate 91 98 88 Respiratory Rate 18 18 Blood Pressure 116/74 133/89 140/91 H Pulse Oximetry 100 99 Oxygen Delivery Method Room Air Room Air BMI result Body Mass Index 38.0 Labs 03/06/23 00:59 03/06/23 00:59 Labs: Laboratory Results - last 48 hr 03/08/23 03/08/23 03/10/23 18:22 18:22 12:10 POC Glucose Estimat Average Glucose 97 Hemoglobin A1c % 5.0 T.pallidum Ab (EIA) Nonreactive HIV 1&2 Ab/P24 Ag 4thGn Nonreactive 03/10/23 12:19 POC Glucose 104 Estimat Average Glucose Hemoglobin A1c % T.pallidum Ab (EIA) HIV 1&2 Ab/P24 Ag 4thGn Imaging Radiology Impressions: ITS Impressions Ankle X-Ray 03/06/23 00:57 IMPRESSION: Intact hardware at the distal tibia and fibula. Alignment is grossly maintained. Medications Medications Current Medications Al Hydroxide/Mg Hydroxide (Magnesium Hydrox/Alum Hydrox 30 Ml Oral.Susp) 30 ml PO Q6H PRN PRN Reason: Heartburn/Nausea Buprenorphine/Naloxone (Buprenorphine/Naloxone 8/2 Mg Film) 1 film SUBLINGUAL BID@0800,1800 [facility] Last Admin: 03/11/23 08:10 Dose: 1 film Bupropion HCl (Bupropion Hcl Xl 150 Mg Tab.Er.24h) 150 mg PO DAILY [facility] Last Admin: 03/11/23 08:10 Dose: 150 mg Clonidine HCl (Clonidine Hcl 0.1 Mg Tablet) 0.1 mg PO Q2H PRN; Protocol PRN Reason: anxiety/signs of opioid withdrawal Last Admin: 03/11/23 15:00 Dose: 0.1 mg Dicyclomine HCl (Dicyclomine Hcl 10 Mg Capsule) 10 mg PO QIDACHS PRN PRN Reason: cramping Hydroxyzine HCl (Hydroxyzine Hcl 50 Mg Tablet) 50 mg PO Q6H PRN PRN Reason: Anxiety Last Admin: 03/10/23 19:12 Dose: 50 mg Ibuprofen (Ibuprofen 600 Mg Tablet) 600 mg PO Q6H PRN PRN Reason: moderate pain Last Admin: 03/10/23 20:32 Dose: 600 mg Lorazepam (Lorazepam 1 Mg Tablet) 1 mg PO Q4H PRN PRN Reason: anxiety/agitation Last Admin: 03/11/23 15:00 Dose: 1 mg Magnesium Hydroxide (Milk Of Magnesia 30 Ml Oral.Susp) 30 ml PO DAILY PRN PRN Reason: Constipation Nicotine Polacrilex (Nicotine Polacrilex 2 Mg Gum) 4 mg BUCCAL Q2H PRN PRN Reason: Nicotine Cravings Last Admin: 03/09/23 11:45 Dose: 4 mg Ondansetron HCl (Ondansetron Odt 4 Mg Tab.Rapdis) 4 mg TRANSLINGU Q6H PRN PRN Reason: Nausea Last Admin: 03/10/23 08:36 Dose: 4 mg Thiamine HCl (Thiamine Hcl 100 Mg Tablet) 100 mg PO DAILY [facility] Last Admin: 03/11/23 08:10 Dose: 100 mg Trazodone HCl (Trazodone Hcl 50 Mg Tablet) 50 mg PO BEDTIME MRX1 PRN PRN Reason: Insomnia Last Admin: 03/10/23 23:25 Dose: 50 mg Venlafaxine HCl (Venlafaxine Hcl Er 37.5 Mg Cap.Er.24h) 37.5 mg PO DAILY [facility] Last Admin: 03/11/23 08:10 Dose: 37.5 mg Allergies Allergies Allergy/AdvReac Type Severity Reaction Status Date / Time No Known Allergies Allergy Verified 07/27/20 19:58 Assessment & Plan Assessment & Plan (1) Major depressive disorder: Status: Acute Code(s): F32.9 - Major depressive disorder, single episode, unspecified (2) PTSD (post-traumatic stress disorder): Status: Acute Code(s): F43.10 - Post-traumatic stress disorder, unspecified (3) Opioid use disorder: Status: Acute Code(s): F11.90 - Opioid use, unspecified, uncomplicated Plan 03/07: start wellbutrin 150 mg daily. start effexor 37.5 mg daily. T/C ECT. prepare for possibility of ECT with repeat ekg and medical consult. case discussed with Dr. Corona. 03/08: medically cleared for ECT. states today she will not be staying long enough to do ECT and so retracts her request. asks to leave, then decides to stay, repeats the process again. will be told to sign 3-day notice if she asks to leave again. required only 2 mg ativan yesterday, got 1 mg today. CIWA DC'ed and ativan stopped. denies withdrawal from opioids but does admit to cravings. started on suboxone 8 mg BID. 03/09 she complained that her partner was positive Trichomonas so STI testing was ordered today. Waiting for results, she requested also Klonopin, Ozempic another medications since she wants to lose weight. 03/10 she asked for ADHD medications and as for Adderall according to [facility] she does not have any valid script for stimulants. Consult to hospitalist was ordered yesterday. 03/11: Pt reports feeling pissed off at social work coordinator d/t feeling unheard and being told what's good for me . Patient turned down placement at [facility] and was told she was not accepted at [facility]. Pt became tearful and upset, asking to be discharged; stated I just want to leave and go to a different hospital. I don't want to go to [facility].I don't want anything from you guys. I will be fine and I'll go to [facility] . Will assess patient tomorrow for readiness for discharge. Patient educated on: diagnosis, medication risk/benefits, substance abuse and therapeutic strategies Informed Consent: understands Reason for continued inpatient stay Substantial Risk for: med/psych decompensation Time Spent With Patient Time: Total time managing care of this patient today _30___ minutes.
[2023-03-11 18:00] VITALS: RESP 18
[2023-03-12] MEDS: Venlafaxine HCl ER 37.5 MG CAP.ER.24H PO (09:39)
[2023-03-12] MEDS: buPROPion HCl XL 150 MG TAB.ER.24H PO (09:39)
[2023-03-12] MEDS: Buprenorphine/Naloxone 8/2 mg FILM 1 FILM SUBLINGUAL ×2 (09:39→17:57)
[2023-03-12] MEDS: Thiamine HCL 100 MG TABLET PO (09:40)
[2023-03-12] MEDS: LORazepam 1 MG TABLET PO ×3 (09:43→20:35)
[2023-03-12] MEDS: cloNIDine HCL 0.1 MG TABLET PO ×2 (12:23→20:35)
[2023-03-12 12:24] VITALS: BP 118/82; PULSE 82; RESP 18; O2SAT 94
--- NOTE | 2023-03-12 14:15 | P.PNPSI_ITS ---
Subjective Subjective Date of Service: 03/12/23 Reason For Visit: SI Subjective Notes: Conditional Voluntary Interim History: Reviewed in team and Dr. Corona. Patient continues to present irritable today. Patient stated, I want to stay here longer. I want to go to [facility] . Patient upset d/t bed at [facility] being given to another patient. Patient reports suicidal ideation to OD. Reports auditory hallucinatons of people calling me a bitch and calling me crazy . Medication Compliance: Yes Side effects from medications: No Attending Groups: No Review of Systems Review of Systems Mild ankle pain Otherwise no acute medical complaints Yes all other systems are reviewed and are negative Constitutional: Reports as per HPI Eyes: Reports as per HPI Reports as per HPI Cardiovascular: Reports as per HPI Respiratory: Reports as per HPI Gastrointestinal: Reports as per HPI Genitourinary: Reports as per HPI Musculoskeletal: Reports as per HPI Skin/Breast: Reports as per HPI Reports as per HPI Psychiatric: Reports as per HPI Endocrine: Reports as per HPI Hematologic/Lymphatic: Reports as per HPI Allergic/Immunologic: Reports as per HPI Mental Status Exam Mental Status Exam Narrative: Pt is alert and oriented; behavior is irritable; dressed in casual attire; mood is described as irritated ; eye contact appropriate; Speech is normal rate, volume and prosody and not pressured; no psychomotor agitation/retardation present; thought process is organized; Thought content is on tx; otherwise pertinent to relevant topics and without any delusional content, paranoid ideations or grandiosity; denies HI. Reports suicidal ideation with plan to OD. Reports auditory hallucinations of people calling me a bitch and thinking I'm crazy . Denies VH. Patients insight and judgment are poor. Diagnostics Vital Signs (24Hr): Vital Signs - 24 hr 03/11/23 18:00 03/12/23 12:24 Pulse Rate 82 Respiratory Rate 18 18 Blood Pressure 118/82 Pulse Oximetry 94 Oxygen Delivery Method Room Air BMI result Body Mass Index 38.0 Labs 03/06/23 00:59 03/06/23 00:59 Labs: Laboratory Results - last 48 hr 03/08/23 03/08/23 18:22 18:22 T.pallidum Ab (EIA) Nonreactive HIV 1&2 Ab/P24 Ag 4thGn Nonreactive Imaging Radiology Impressions: ITS Impressions Ankle X-Ray 03/06/23 00:57 IMPRESSION: Intact hardware at the distal tibia and fibula. Alignment is grossly maintained. Medications Medications Current Medications Al Hydroxide/Mg Hydroxide (Magnesium Hydrox/Alum Hydrox 30 Ml Oral.Susp) 30 ml PO Q6H PRN PRN Reason: Heartburn/Nausea Buprenorphine/Naloxone (Buprenorphine/Naloxone 8/2 Mg Film) 1 film SUBLINGUAL BID@0800,1800 [facility] Last Admin: 03/12/23 09:39 Dose: 1 film Bupropion HCl (Bupropion Hcl Xl 150 Mg Tab.Er.24h) 150 mg PO DAILY [facility] Last Admin: 03/12/23 09:39 Dose: 150 mg Clonidine HCl (Clonidine Hcl 0.1 Mg Tablet) 0.1 mg PO Q2H PRN; Protocol PRN Reason: anxiety/signs of opioid withdrawal Last Admin: 03/12/23 12:23 Dose: 0.1 mg Dicyclomine HCl (Dicyclomine Hcl 10 Mg Capsule) 10 mg PO QIDACHS PRN PRN Reason: cramping Hydroxyzine HCl (Hydroxyzine Hcl 50 Mg Tablet) 50 mg PO Q6H PRN PRN Reason: Anxiety Last Admin: 03/10/23 19:12 Dose: 50 mg Ibuprofen (Ibuprofen 600 Mg Tablet) 600 mg PO Q6H PRN PRN Reason: moderate pain Last Admin: 03/10/23 20:32 Dose: 600 mg Lorazepam (Lorazepam 1 Mg Tablet) 1 mg PO Q4H PRN PRN Reason: anxiety/agitation Last Admin: 03/12/23 09:43 Dose: 1 mg Magnesium Hydroxide (Milk Of Magnesia 30 Ml Oral.Susp) 30 ml PO DAILY PRN PRN Reason: Constipation Nicotine Polacrilex (Nicotine Polacrilex 2 Mg Gum) 4 mg BUCCAL Q2H PRN PRN Reason: Nicotine Cravings Last Admin: 03/09/23 11:45 Dose: 4 mg Ondansetron HCl (Ondansetron Odt 4 Mg Tab.Rapdis) 4 mg TRANSLINGU Q6H PRN PRN Reason: Nausea Last Admin: 03/10/23 08:36 Dose: 4 mg Thiamine HCl (Thiamine Hcl 100 Mg Tablet) 100 mg PO DAILY [facility] Last Admin: 03/12/23 09:40 Dose: 100 mg Trazodone HCl (Trazodone Hcl 50 Mg Tablet) 50 mg PO BEDTIME MRX1 PRN PRN Reason: Insomnia Last Admin: 03/10/23 23:25 Dose: 50 mg Venlafaxine HCl (Venlafaxine Hcl Er 37.5 Mg Cap.Er.24h) 37.5 mg PO DAILY [facility] Last Admin: 03/12/23 09:39 Dose: 37.5 mg Allergies Allergies Allergy/AdvReac Type Severity Reaction Status Date / Time No Known Allergies Allergy Verified 07/27/20 19:58 Assessment & Plan Assessment & Plan (1) Major depressive disorder: Status: Acute Code(s): F32.9 - Major depressive disorder, single episode, unspecified (2) PTSD (post-traumatic stress disorder): Status: Acute Code(s): F43.10 - Post-traumatic stress disorder, unspecified (3) Opioid use disorder: Status: Acute Code(s): F11.90 - Opioid use, unspecified, uncomplicated Plan 03/07: start wellbutrin 150 mg daily. start effexor 37.5 mg daily. T/C ECT. prepare for possibility of ECT with repeat ekg and medical consult. case discussed with Dr. Corona. 03/08: medically cleared for ECT. states today she will not be staying long enough to do ECT and so retracts her request. asks to leave, then decides to stay, repeats the process again. will be told to sign 3-day notice if she asks to leave again. required only 2 mg ativan yesterday, got 1 mg today. CIWA ME'ed and ativan stopped. denies withdrawal from opioids but does admit to cravings. started on suboxone 8 mg BID. 03/09 she complained that her partner was positive Trichomonas so STI testing was ordered today. Waiting for results, she requested also Klonopin, Ozempic another medications since she wants to lose weight. 03/10 she asked for ADHD medications and as for Adderall according to [facility] Pat she does not have any valid script for stimulants. Consult to hospitalist was ordered yesterday. 03/11: Pt reports feeling pissed off at social science manager d/t feeling unheard and being told what's good for me . Patient turned down placement at [facility] and was told she was not accepted at [facility]. Pt became tearful and upset, asking to be discharged; stated I just want to leave and go to a different hospital. I don't want to go to [facility].I don't want anything from you guys. I will be fine and I'll go to [facility] . Will assess patient tomorrow for readiness for discharge. 03/12: Patient continues to present irritable today. Patient stated, I want to stay here longer. I want to go to [facility] . Patient upset d/t bed at [facility] being given to another patient. Patient reports suicidal ideation to OD. Reports auditory hallucinatons of people calling me a bitch and calling me crazy . Pt is requesting to start Risperidal 1mg PO bedtime d/t taking it in the past and being helpful with AH. Will start tonight. Continue current tx plan. Patient educated on: diagnosis and medication risk/benefits Informed Consent: understands Reason for continued inpatient stay Substantial Risk for: harm to self and med/psych decompensation Time Spent With Patient Time: Total time managing care of this patient today _30___ minutes.
[2023-03-12] MEDS: hydrOXYzine HCL 50 MG TABLET PO (16:55)
[2023-03-12 20:25] VITALS: BP 107/65; PULSE 83; RESP 16; TEMP 36.1; O2SAT 97
[2023-03-12] MEDS: Dicyclomine HCl 10 MG CAPSULE PO (20:35)
[2023-03-12] MEDS: traZODone HCL 50 MG TABLET PO (20:35)
[2023-03-12] MEDS: risperiDONE 1 MG TABLET PO (20:40)
[2023-03-12] MEDS: Ondansetron ODT 4 MG TAB.RAPDIS TRANSLINGU (20:57)
[2023-03-13 06:00] VITALS: PULSE 84; RESP 20; TEMP 36.6; O2SAT 97
[2023-03-13] MEDS: buPROPion HCl XL 150 MG TAB.ER.24H PO (08:22)
[2023-03-13] MEDS: Thiamine HCL 100 MG TABLET PO (08:22)
[2023-03-13] MEDS: guanFACINE HCl ER 1 MG TAB.ER.24H PO (08:22)
[2023-03-13] MEDS: Buprenorphine/Naloxone 8/2 mg FILM 1 FILM SUBLINGUAL (08:23)
[2023-03-13] MEDS: Venlafaxine HCl ER 37.5 MG CAP.ER.24H PO (08:23)
[2023-03-13] MEDS: LORazepam 1 MG TABLET PO ×2 (08:25→14:43)
[2023-03-13] MEDS: cloNIDine HCL 0.1 MG TABLET PO ×2 (08:26→10:57)
--- NOTE | 2023-03-13 09:25 | P.PNPSI_ITS ---
Subjective Subjective Date of Service: 03/13/23 Reason For Visit: SI Subjective Notes: Conditional Voluntary Interim History: Pt denies suicidal or homicidal ideation. Pt has declined two bed in residential substance use treatment programs. Pt reports she feels she needs inpatient treatment on the this unit to get medications right. Pt does not present as psychotic or delusional. She reports her mood is up and down. She does have low frustration tolerance, tendency to easily become irritable. We discussed starting trileptal, after reviewing other mood s tabilizer for impulsive and explosive behaviors. Per nursing, pt slept through the night. Medication Compliance: Yes Side effects from medications: No Review of Systems Review of Systems Mild ankle pain Otherwise no acute medical complaints Yes all other systems are reviewed and are negative Constitutional: Reports as per HPI Eyes: Reports as per HPI Reports as per HPI Cardiovascular: Reports as per HPI Respiratory: Reports as per HPI Gastrointestinal: Reports as per HPI Musculoskeletal: Reports as per HPI Skin/Breast: Reports as per HPI Reports as per HPI Psychiatric: Reports as per HPI Endocrine: Reports as per HPI Hematologic/Lymphatic: Reports as per HPI Allergic/Immunologic: Reports as per HPI Mental Status Exam Mental Status Exam Patient Appearance: Appropriate Patient Orientation: Person, Place and Situation Level of Consciousness: Awake and Appropriate Patient Behavior: Guarded Mood Description: Calm Affect Description: Constricted Patient Cognition Impaired: Yes Ability to Follow Directions: Good Speech Pattern: Clear Diagnostics Vital Signs (24Hr): Vital Signs - 24 hr 03/12/23 12:24 03/12/23 20:25 03/13/23 06:00 Temperature 97 F 97.9 F Pulse Rate 82 83 84 Respiratory Rate 18 16 20 Blood Pressure 118/82 107/65 Pulse Oximetry 94 97 97 Oxygen Delivery Method Room Air Room Air Room Air BMI result Body Mass Index 38.0 Labs 03/06/23 00:59 03/06/23 00:59 Imaging Radiology Impressions: ITS Impressions Ankle X-Ray 03/06/23 00:57 IMPRESSION: Intact hardware at the distal tibia and fibula. Alignment is grossly maintained. Medications Medications Current Medications Al Hydroxide/Mg Hydroxide (Magnesium Hydrox/Alum Hydrox 30 Ml Oral.Susp) 30 ml PO Q6H PRN PRN Reason: Heartburn/Nausea Buprenorphine/Naloxone (Buprenorphine/Naloxone 8/2 Mg Film) 1 film SUBLINGUAL BID@0800,1800 [facility] Last Admin: 03/13/23 08:23 Dose: 1 film Bupropion HCl (Bupropion Hcl Xl 150 Mg Tab.Er.24h) 150 mg PO DAILY [facility] Last Admin: 03/13/23 08:22 Dose: 150 mg Clonidine HCl (Clonidine Hcl 0.1 Mg Tablet) 0.1 mg PO Q2H PRN; Protocol PRN Reason: anxiety/signs of opioid withdrawal Last Admin: 03/13/23 08:26 Dose: 0.1 mg Dicyclomine HCl (Dicyclomine Hcl 10 Mg Capsule) 10 mg PO QIDACHS PRN PRN Reason: cramping Last Admin: 03/12/23 20:35 Dose: 10 mg Guanfacine HCl (Guanfacine Hcl Er 1 Mg Tab.Er.24h) 1 mg PO DAILY [facility] Last Admin: 03/13/23 08:22 Dose: 1 mg Hydroxyzine HCl (Hydroxyzine Hcl 50 Mg Tablet) 50 mg PO Q6H PRN PRN Reason: Anxiety Last Admin: 03/12/23 16:55 Dose: 50 mg Ibuprofen (Ibuprofen 600 Mg Tablet) 600 mg PO Q6H PRN PRN Reason: moderate pain Last Admin: 03/10/23 20:32 Dose: 600 mg Lorazepam (Lorazepam 1 Mg Tablet) 1 mg PO Q4H PRN PRN Reason: anxiety/agitation Last Admin: 03/13/23 08:25 Dose: 1 mg Magnesium Hydroxide (Milk Of Magnesia 30 Ml Oral.Susp) 30 ml PO DAILY PRN PRN Reason: Constipation Nicotine Polacrilex (Nicotine Polacrilex 2 Mg Gum) 4 mg BUCCAL Q2H PRN PRN Reason: Nicotine Cravings Last Admin: 03/09/23 11:45 Dose: 4 mg Ondansetron HCl (Ondansetron Odt 4 Mg Tab.Rapdis) 4 mg TRANSLINGU Q6H PRN PRN Reason: Nausea Last Admin: 03/12/23 20:57 Dose: 4 mg Risperidone (Risperidone 1 Mg Tablet) 1 mg PO BEDTIME [facility] Last Admin: 03/12/23 20:40 Dose: 1 mg Thiamine HCl (Thiamine Hcl 100 Mg Tablet) 100 mg PO DAILY [facility] Last Admin: 03/13/23 08:22 Dose: 100 mg Trazodone HCl (Trazodone Hcl 50 Mg Tablet) 50 mg PO BEDTIME MRX1 PRN PRN Reason: Insomnia Last Admin: 03/12/23 20:35 Dose: 50 mg Venlafaxine HCl (Venlafaxine Hcl Er 37.5 Mg Cap.Er.24h) 37.5 mg PO DAILY [facility] Last Admin: 03/13/23 08:23 Dose: 37.5 mg Allergies Allergies Allergy/AdvReac Type Severity Reaction Status Date / Time No Known Allergies Allergy Verified 07/27/20 19:58 Assessment & Plan Assessment & Plan (1) Major depressive disorder: Status: Acute Code(s): F32.9 - Major depressive disorder, single episode, unspecified (2) PTSD (post-traumatic stress disorder): Status: Acute Code(s): F43.10 - Post-traumatic stress disorder, unspecified (3) Opioid use disorder: Status: Acute Code(s): F11.90 - Opioid use, unspecified, uncomplicated Plan 03/07: start wellbutrin 150 mg daily. start effexor 37.5 mg daily. T/C ECT. prepare for possibility of ECT with repeat ekg and medical consult. case discussed with Dr. Corona. 03/08: medically cleared for ECT. states today she will not be staying long enough to do ECT and so retracts her request. asks to leave, then decides to s stevie, repeats the process again. will be told to sign 3-day notice if she asks to leave again. required only 2 mg ativan yesterday, got 1 mg today. CIWA NJ'ed and ativan stopped. denies withdrawal from opioids but does admit to cravings. started on suboxone 8 mg BID. 03/09 she complained that her partner was positive Trichomonas so STI testing was ordered today. Waiting for results, she requested also Klonopin, Ozempic another medications since she wants to lose weight. 03/10 she asked for ADHD medications and as for Adderall according to [facility] she does not have any valid script for stimulants. Consult to hospitalist was ordered yesterday. 03/11: Pt reports feeling pissed off at social sciences department chair d/t feeling unheard and being told what's good for me . Patient turned down placement at [facility] and was told she was not accepted at [facility]. Pt became tearful and upset, asking to be discharged; stated I just want to leave and go to a different hospital. I don't want to go to [facility].I don't want anything from you guys. I will be fine and I'll go to [facility] . Will assess patient tomorrow for readiness for discharge. 03/12: Patient continues to present irritable today. Patient stated, I want to stay here longer. I want to go to [facility] . Patient upset d/t bed at [facility] being given to another patient. Patient reports suicidal ideation to OD. Reports auditory hallucinatons of people calling me a bitch and calling me crazy . Pt is requesting to start Risperidal 1mg PO bedtime d/t taking it in the past and being helpful with AH. Will start tonight. Continue current tx plan. 03/13- pt denies SI/HI although conditional to being able to stay on the unit indefinitely but at the same time declined 2 bed at two different residential treatment. We discussed the need to continue terminal make up operator outpatient treatment at this point. Reason for continued inpatient stay Substantial Risk for: stable for discharge Time Spent With Patient Time: Total time managing care of this patient today ____ minutes.
[2023-03-13] MEDS: OXcarbazepine 300 MG TABLET 600 MG PO (10:57)
[2023-03-13] MEDS: Ibuprofen 600 MG TABLET PO (10:57)
[2023-03-13] MEDS: hydrOXYzine HCL 50 MG TABLET PO (14:43)
--- NOTE | 2023-03-13 15:14 | PM.PSYDC ---
DS: Providers Provider Date of Service: 03/13/23 Date of admission: 03/06/23 16:57 Date of discharge: 03/13/23 Primary care physician: None Physician Consults: 03/07/23 11:43 Consult to Hospitalist Routine Comment: Consulting Provider: Hospitalist Reason For Exam: ECT clearance 03/10/23 11:47 Addiction Medicine Routine Consulting Provider: Addiction Covering Reason for consultation: wants adjustment of Suboxone Has provider been notified: No DS: Diagnosis Discharge Diagnosis (1) Major depressive disorder: Status: Inactive (2) PTSD (post-traumatic stress disorder): Status: Acute (3) Opioid use disorder: Status: Acute DS: Medications Discharge Medications Home Medications: Previous Rx's Medication Instructions Recorded bupropion HCl 150 mg 24 hr tablet, 150 mg PO DAILY 30 days #30 tabs 03/08/23 extended release hydroxyzine HCl 25 mg tablet 25 mg PO BID PRN Anxiety 30 days 03/08/23 #60 tabs thiamine mononitrate (vit B1) 100 100 mg PO DAILY 30 days #30 tabs 03/08/23 mg tablet trazodone 50 mg tablet 50 mg PO BEDTIME MRX1 30 days #30 03/08/23 tabs venlafaxine 37.5 mg 37.5 mg PO DAILY 30 days #30 caps 03/08/23 capsule,extended release 24 hr Mental Status Exam Mental Status Exam Narrative: Appearance: wearing casual clothing, good hygiene, in NAD Behavior: superficially cooperative Psychomotor: no agitation or retardation noted TP: linear TC: no signs of psychosis, wanting to stay longer on the unit but declining treatment for dual diagnosis. Mood: up and down SI: none. She does report conditional suicidality if discharged to correction sooner than she would like to HI: not to anyone in particular but angry with the world at times and vague threats VH/AH: none Delusions: none Insight/judgment: poor x 2. Memory/cog: alert, oriented x 3. grossly intact to conversational testing. Data Data Completed and Pending Completed studies during hospitalization [Text1]: 03/08/23 03/08/23 03/08/23 18:22 18:22 18:30 POC Glucose Estimat Average Glucose Hemoglobin A1c % T.pallidum Ab (EIA) Nonreactive Jessica species DNA Negative Chlam trachomat DNA PCR Gardnerella DNA Probe Negative HIV 1&2 Ab/P24 Ag 4thGn Nonreactive N.gonorrhoeae DNA (PCR) Trichomonas DNA Probe Negative 03/08/23 03/10/23 03/10/23 18:30 12:10 12:19 POC Glucose 104 Estimat Average Glucose 97 Hemoglobin A1c % 5.0 T.pallidum Ab (EIA) Jessica species DNA Chlam trachomat DNA PCR NOT DETECTED Gardnerella DNA Probe HIV 1&2 Ab/P24 Ag 4thGn N.gonorrhoeae DNA (PCR) NOT DETECTED Trichomonas DNA Probe Imaging Diagnostic Imaging Impressions Ankle X-Ray 03/06/23 00:57 IMPRESSION: Intact hardware at the distal tibia and fibula. Alignment is grossly maintained. DS: Summary Hospital Course Hospital Course: pt BIB[facility] to [facility] with c/o intoxication/substance use and SI/depression.? she reported also having injured her ankle stepping out of a car, which led to her calling 911 bcse she was unable to walk.? she identified several life stressors, including homelessness, unemployment, chronic substance use.? she reported SI with plan and intent to overdose on heroin, which is what she reportedly did in january of 2023, leading to ICU care at [facility] and a 2 week psych hospitalization at [facility].? she endorses Dx of bipolar disorder and PTSD.? reports AH of voices saying she doesn't deserve to live.? endorses insomnia and anorexia, hopelessness. on interview with MD, pt's narrative supports that detailed above (aside from bipolar diagnosis).? she requests ECT, which is discussed in some depth.? pt is provided patient education on ECT, case D/W Dr. Corona.? meds Hx discussed, pt reports trials of numerous medications.? she has felt they have not adequately helped her, which is why she is requesting ECT.? she feels her low mood leads to substance use, that depression is the primary transporter driver of her substance use.? she states that when she is manic, she is working, and parenting well, and a good partner - in short, her life is going well.? when she gets depressed, she can't get out of bed or go to work, and her mind turns to substance use to escape.? substance use reviewed, pt educated on CIWA protocol.? pt has been on both wellbutrin and effexor before but requests to take them both again.? states she was only on wellbutrin 150 in the past, can't recall effexor dosing.? plan to start meds now and T/C ECT moving forward.? pt interested in substance abuse residential program. Past Psychiatric History: hosps:? reports about 8 prior psych hosps ([place], [facility], [place], [facility], [place], [place]) SA:? x 1 as an adult (heroin OD, summer 2022), x 3 as a child SIB:? denies Hx outpt:? denies current providers med trials:? wellbutrin, zyprexa, lamictal, lithium, klonopin, zoloft, clonidine, effexor, stimulants. Medical Evaluation Reviewed: Yes HOSPITAL COURSE On the unit, pt was admitted on a CV and placed on 15 minutes checks for safety. On the unit, pt presented as irritable, at times demanding. She denied suicidal ideation or homicidal ideation. She was restarted on wellbutrin and effexor. She was also started on risperidone per her request but day after reported she did not want this medications. She declined two bed one at [facility] for dual diagnosis treatment and second one [facility]. Pt did not attends groups. She did take medications as prescribed. On the unit, pt presented with low frustration tolerance and demanding at times. She also presented with tendency to blame others for his misfortune and lack of following up with treatment in the community. Pt initially had agreed to step down to respite or dual dx program. Pt now declines referrals for voluntary dual diagnosis programming. Pt asks to be discharged to the community with providers through [facility]. We discussed risks, benefits and alternative treatment options. However, pt continued to decline referral for dual substance use treatment program in residential setting. She denied SI/HI. No VH/AH. No signs of aggression towards self or others. Given narcan at time of discharge. Time spent discussing smoking cessation with patient: 3 to 10 minutes Status at Discharge Cognitive/behavioral status at discharge: Pt with brighter, non labile affect. No SI/HI. Much less psychosis, no overt delusional content noted or reported. No signs of aggression towards self or others. Pt sleeping and eating well. future oriented. given narcan at time of discharge. Functional status at discharge: independent ambulation Overall status at discharge: patient is progressing back to baseline Time Spent with Patient Time attestation: Total time managing care of this patient today ____ minutes. Discharge Plan Discharge Anticipated Discharge Date/Time: 03/13/23 15:14 Patient Disposition: Penitentiary Discharge Diagnosis: PTSD, Chronic Polysubstance Use Disorder Referrals: Marge Cannon (Therapy & Psychiatry) [Other] - 03/15/23 11:00 am (IN OFFICE APPOINTMENT -Once you attend this intake appointment, you will then be set up with therapy and psychiatry appointments moving forward. ) Suboxone Maintenance (Valeria Kim) [Other] - 03/14/23 4:00 pm (IN OFFICE INTAKE APPOINTMENT) [facility] [place] [Provider Group] - 1 Week (Walk in hours Saturday through Saturday 830am to 4pm) Discharge Medications: New venlafaxine 37.5 mg Capsule,Extended Release 24hr 37.5 mg PO DAILY 30 Days Qty: 30 0RF trazodone 50 mg Tablet 50 mg PO BEDTIME MRX1 30 Days Qty: 30 0RF hydroxyzine HCl 25 mg Tablet 25 mg PO BID PRN (Reason: Anxiety) 30 Days Qty: 60 0RF bupropion HCl 150 mg Tablet Extended Release 24 Hr 150 mg PO DAILY 30 Days Qty: 30 0RF thiamine mononitrate (vit B1) 100 mg Tablet 100 mg PO DAILY 30 Days Qty: 30 0RF oxcarbazepine 300 mg Tablet 600 mg PO BID Qty: 60 0RF risperidone 1 mg Tablet 1 mg PO BEDTIME Qty: 30 0RF guanfacine 1 mg Tablet Extended Release 24 Hr 1 mg PO DAILY Qty: 15 0RF buprenorphine-naloxone [Suboxone] 8-2 mg Film 1 film sublingual BID@0800,1800 Qty: 14 0RF Discharge Orders: Discharge Order (Routine); Ordered 03/13/23 Ordered By: Laila Nicole Diet: Advance to usual diet Activity on Discharge: As tolerated Stand Alone Forms: Patient Portal Discharge page, Community Support Care Plan Goals: remain safe, sober, and stable in the outpatient treatment setting Health Concerns: ankle injury Plan of Treatment: take medications as prescribed, attend appointments as scheduled Assessment: not at imminent risk of harm to self or others chronic risk of self harm due to ongoing substance use along with impulsive behaviors and lack of insight. Discharge Date/Time: 03/13/23 15:38
[2023-03-13] MEDS: Naloxone HCl Nasal TAKE HOME 4 MG SPRAY 8 MG NOSTRILALT (16:01)
== END 2023-03-13 15:38 | disposition home or self-care (01) | DRG 773 ==
LOC: HO.ED 03-06 05:38 → HO.PADLT16 03-06 17:03
PROVIDERS: Emergency Medicine; Psychiatry & Neurology Psychiatry; Student in an Organized Health Care Education/Training Program; Admitting Provider Psychiatry & Neurology Psychiatry; Emergency Provider Internal Medicine; Responsible Provider Registered Nurse; Visit Provider Psychiatry & Neurology Psychiatry
DX: F11.20 Opioid dependence, uncomplicated (principal); F10.10 Alcohol abuse, uncomplicated; F14.10 Cocaine abuse, uncomplicated; F32.9 Major depressive disorder, single episode, unspecified; Z20.822 Contact with and (suspected) exposure to COVID-19; Y90.3 Blood alcohol level of 60-79 mg/100 ml; Z59.00 Homelessness unspecified; Z56.0 Unemployment, unspecified; Z91.51 Personal history of suicidal behavior; Z91.148 Patient's other noncompliance with medication regimen for other reason; Z79.899 Other long term (current) drug therapy
CPT/HCPCS: 0353U; 36415; 73610; 80053; 80307; 81003; 81025; 82947; 83036; 85027; 86780; 87389; 87480; 87510; 87635; 87660; 93005; 99285; S9485

== ENCOUNTER → 2023-03-06 11:01 | Outpatient (BNV) | payer MEDICAID, SELFPAY | PROVIDERS: Emergency Provider Internal Medicine; Visit Provider Internal Medicine Cardiovascular Disease | DX: I45.81 Long QT syndrome (principal) | CPT/HCPCS: 93010 ==

== ENCOUNTER 2023-03-06 16:57 | Outpatient (BNV) | payer MEDICAID, SELFPAY | END 2023-03-07 13:16 | PROVIDERS: Admitting Provider Psychiatry & Neurology Psychiatry; Emergency Provider Internal Medicine; Visit Provider Internal Medicine Cardiovascular Disease | DX: R00.0 Tachycardia, unspecified (principal); Z51.81 Encounter for therapeutic drug level monitoring | CPT/HCPCS: 93010 ==

== ENCOUNTER → 2023-03-06 16:57 | Outpatient (BNV) | payer OTHER, SELFPAY | PROVIDERS: Admitting Provider Psychiatry & Neurology Psychiatry; Emergency Provider Internal Medicine; Visit Provider Psychiatry & Neurology Psychiatry | DX: F33.3 Major depressive disorder, recurrent, severe with psychotic symptoms (principal); F43.11 Post-traumatic stress disorder, acute; F11.90 Opioid use, unspecified, uncomplicated | CPT/HCPCS: 99231; 99232; 99233; 99499 ==

== ENCOUNTER → 2023-03-06 16:57 | Outpatient (BNV) | payer OTHER, SELFPAY | PROVIDERS: Admitting Provider Psychiatry & Neurology Psychiatry; Emergency Provider Internal Medicine; Visit Provider Student in an Organized Health Care Education/Training Program | DX: Z01.818 Encounter for other preprocedural examination (principal) | CPT/HCPCS: 99429; 99499 ==

== ENCOUNTER 2023-08-21 03:40 | Emergency (ER) | payer OTHER, MEDICAID, SELFPAY ==
[2023-08-21 03:44] VITALS: BP 110/78; PULSE 116; O2SAT 97
[2023-08-21 04:01] VITALS: BP 110/88; PULSE 97; RESP 18; TEMP 36.3; O2SAT 98; BMI 38.1
[2023-08-21 04:54] VITALS: PULSE 97
--- NOTE | 2023-08-21 04:56 | PC.NURSE ---
pt reports recent d/c from [facility] placement has been experiencing issues with baby tram. reports si thoughts onset tonight (no plan) as she was out in the rain with no way of traveling back to [place] (home) from [place]. pt reports was trying to buy cocaine but believes she was given heroin/fetanyl. pt reports used approx 2100 08/20/23 and has been experiencing L sided cp since. pt reports had felt sob which has resolved. pt denies n/v/d/dizziness. insulation cupola charger Karen aware of pt sx, brought to pod after ekg was obtained in triage. pt calm/cooperative at this time. changed over by jessie pct and security, belongings in Laundry room. pt resting comfortably in bed. 15 min checks ongoing.
--- NOTE | 2023-08-21 05:45 | ED.PSYCH ---
HPI - Psych General Chief Complaint: ETOH/Substance Use Stated Complaint: COLD ETOH Time Seen by Provider: 08/21/23 05:45 Source: patient Mode of arrival: EMS Limitations: no limitations History of Present Illness HPI Narrative: Patient history of substance abuse PTSD, schizophrenia had cocaine heroin and alcohol earlier was walking in the rain wet homeless. After arrival in the ER patient's said she was suicidal but when asked patient denied any suicidal ideation. Denies any hallucination or delusion no recent fall or injury Related Data Previous Rx's Medication Instructions Recorded bupropion HCl 150 mg 24 hr tablet, 150 mg PO DAILY 30 days #30 tabs 03/08/23 extended release hydroxyzine HCl 25 mg tablet 25 mg PO BID PRN Anxiety 30 days 03/08/23 #60 tabs thiamine mononitrate (vit B1) 100 100 mg PO DAILY 30 days #30 tabs 03/08/23 mg tablet trazodone 50 mg tablet 50 mg PO BEDTIME MRX1 30 days #30 03/08/23 tabs venlafaxine 37.5 mg 37.5 mg PO DAILY 30 days #30 caps 03/08/23 capsule,extended release 24 hr buprenorphine 8 mg-naloxone 2 mg 1 film sublingual BID@0800,1800 03/13/23 sublingual film (Suboxone) #14 ea guanfacine 1 mg tablet,extended 1 mg PO DAILY #15 tabs 03/13/23 release 24 hr oxcarbazepine 300 mg tablet 600 mg (2 x 300 mg) PO BID #60 tabs 03/13/23 risperidone 1 mg tablet 1 mg PO BEDTIME #30 tabs 03/13/23 Allergies Allergy/AdvReac Type Severity Reaction Status Date / Time No Known Allergies Allergy Verified 08/21/23 04:15 Review of Systems Review of Systems: Yes all other systems are reviewed and are negative PMFSH Past Medical History Onset Date is defined in the Problem List Problems that require an onset date and time if occurred within 24 hrs of arrival to the ED Aortic Dissection and Rupture; Neurologic impairment; Cardiopulmonary Arrest; Endotracheal Intubation; Insertion or Replacement of Mechanical Circulatory Assist Device Medical History Alcohol abuse Social History Social History Household Members: None Housing: Homeless Alcohol intake: current Alcohol intake frequency: 3 or more drinks per day Alcohol type: hard liquor Patient Tobacco Use Status: Never used Tobacco Smoked in Last 30 Days: Yes Use of substances other than those prescribed or required for medical reasons: Yes Substance Use Type: Crack/Cocaine and Heroin Advance Directives: No Advance Directives Information Provided: No service: No Sexual orientation: Straight/Heterosexual Physical Exam Vital Signs: Vital Signs: Last Vital Signs Temp 97.4 F 08/21/23 04:01 Pulse 97 08/21/23 04:01 Resp 18 08/21/23 04:01 BP 110/88 08/21/23 04:01 Pulse Ox 98 08/21/23 04:01 O2 Del Method Room Air 08/21/23 04:01 BMI result Body Mass Index 38.1 Appearance: Alert. Oriented X3. No acute distress. Eyes: PERRLA, No Nystagmus ENT: Pharynx normal. Oral Mucosa moist Neck: Normal inspection. Neck supple. CVS: Normal heart rate and rhythm. Pulses normal. Respiratory: No respiratory distress. Equal air entry bilateral, no wheezing/rales/rhonchi Abdomen: Soft and nontender. Bowel sounds are present, no mass palpable, no CVA tenderness Skin: Skin warm and dry. Normal skin color. Normal skin turgor. Extremities: No lower extremity edema. No calf tenderness Neuro: Oriented X 3. No motor deficit. No sensory deficit.No cerebellar signs , cranial nerves II-XII intact Medical Decision Making Medical Decision Making [facility] Narrative: Patient has polysubstance abuse history of schizophrenia and PTSD comes here intoxicated at this time patient denied any SI. Will get care team involved Urine drug screen showed positive for fentanyl and cocaine. alcohol level was 77 Lab Data [facility] Lab Attestation statement: I reviewed the patient's lab results. 08/21/23 06:17 08/21/23 06:17 Labs: Lab Results 08/21/23 08/21/23 Range/Units 05:48 06:17 WBC 13.1 H (4.8-10.8) X10*3/uL RBC 4.49 (4.20-5.50) X10*6/uL Hgb 14.2 (12.0-16.0) g/dl Hct 42.6 (37.0-47.0) % MCV 94.9 (80.0-98.0) fL MCH 31.6 (27.0-33.0) pg MCHC 33.3 (31.0-35.0) g/dl RDW 13.3 (11.0-16.0) % Plt Count 349 (160-400) X10*3/uL MPV 9.4 (9.4-12.3) fL Immature Gran % (Auto) 0.9 H (0.0-0.4) % Neut % (Auto) 82.4 H (45-73) % Lymph % (Auto) 12.6 L (20-40) % [place] % (Auto) 3.7 (2-11) % Eos % (Auto) 0.0 (0-4) % Baso % (Auto) 0.4 (0-2) % Lymph # (Auto) 1.7 (1.2-4.9) X10*3/uL [place] # (Auto) 0.5 (0.1-1.2) X10*3/uL Eos # (Auto) 0.0 (0.0-0.4) X10*3/uL Baso # (Auto) 0.1 (0.0-0.2) X10*3/uL Abs Immat Gran (auto) 0.12 H (0.00-0.03) X10*3/uL Absolute Neuts (auto) 10.8 H (2.0-8.3) x10*3/uL Absolute Nucleated RBC 0.000 (0.0-0.012) X10*3/uL Nucleated RBC % (auto) 0.0 (0.0-0.2) /100WBC Sodium 144 (135-145) mmol/L Potassium 4.0 (3.3-5.1) mmol/L Chloride 107 (96-108) mmol/L Carbon Dioxide 21 L (22-29) mmol/L Anion Gap 20 (12-20) BUN 18 H (9-16) mg/dL Creatinine 1.12 (0.5-1.4) mg/dL Estim Creat Clear Calc 81.6 Estimated GFR 56 Random Glucose 101 (60-115) mg/dL Calcium 9.6 D (8.4-10.2) mg/dL Magnesium 2.3 (1.6-2.6) mg/dL Total Bilirubin 0.4 (0.0-1.0) mg/dL AST 129 H (5-31) U/L ALT 51 H (0-31) U/L Alkaline Phosphatase 44 (39-117) U/L Total Protein 8.0 (6.5-8.0) g/dL Albumin 4.8 (3.5-5.0) g/dL Urine Color Yellow Urine Appearance Cloudy Urine pH 5.0 (5.0-9.0) Ur Specific [place] 1.015 (1.005-1.025) Urine Protein 30 (1+) H (Neg-Trace) mg/dL Urine Glucose (UA) Negative (Negative) mg/dL Urine Ketones Trace (Negative) mg/dL Urine Blood Large (3+) H (Negative) Urine Nitrite Negative (Negative) Ur Leukocyte Esterase Moderate (2+) H (Negative) Urine RBC >20 H (0-2) /HPF Urine WBC 11-20 H (0-5) /HPF Ur Squamous Epith Cells 6-10 (0-2) /HPF Urine Bacteria Trace (None Seen) Hyaline Casts 11-20 (0-2) /LPF Urine Test NEGATIVE (NEGATIVE) Urine Opiates Screen Not Detected (Not Detect) Urine Fentanyl Screen POSITIVE H (Not Detect) Ur Barbiturates Screen Not Detected (Not Detect) Ur Phencyclidine Scrn Not Detected (Not Detect) Ur Amphetamines Screen Not Detected (Not Detect) U Benzodiazepines Scrn Not Detected (Not Detect) Urine Cocaine Screen POSITIVE H (Not Detect) U Marijuana (THC) Screen Not Detected (Not Detect) Ethyl Alcohol 77 mg/dL Discharge Plan Discharge Clinical Impression: Polysubstance abuse, Suicidal ideation Patient Disposition: Still a Patient Prescriptions: No Action venlafaxine 37.5 mg Capsule,Extended Release 24hr 37.5 mg PO DAILY 30 Days Qty: 30 0RF trazodone 50 mg Tablet 50 mg PO BEDTIME MRX1 30 Days Qty: 30 0RF hydroxyzine HCl 25 mg Tablet 25 mg PO BID PRN (Reason: Anxiety) 30 Days Qty: 60 0RF bupropion HCl 150 mg Tablet Extended Release 24 Hr 150 mg PO DAILY 30 Days Qty: 30 0RF thiamine mononitrate (vit B1) 100 mg Tablet 100 mg PO DAILY 30 Days Qty: 30 0RF oxcarbazepine 300 mg Tablet 600 mg PO BID Qty: 60 0RF risperidone 1 mg Tablet 1 mg PO BEDTIME Qty: 30 0RF guanfacine 1 mg Tablet Extended Release 24 Hr 1 mg PO DAILY Qty: 15 0RF buprenorphine-naloxone [Suboxone] 8-2 mg Film 1 film sublingual BID@0800,1800 Qty: 14 0RF
[2023-08-21 05:56] LABS: Appearance Urine Cloudy; Color Urine Yellow; Glucose Urine UA Negative (Negative); Leukocyte Esterase Urine Moderate (2+) (Negative); Nitrite Urine Negative (Negative); Specific Gravity - Urine 1.015 (1.005-1.025); UMIC TRIGGER UACC YES; Urine Blood Large (3+) (Negative); Urine Ketones Trace mg/dL (Negative); Urine Protein 30 (1+) mg/dL (Neg-Trace)
[2023-08-21 05:58] LABS: UPreg QC Valid YES; Urine Pregnancy NEGATIVE (NEGATIVE)
[2023-08-21 06:06] LABS: Bacteria Urine Trace (None Seen); RBC Urine >20 /HPF (0-2); UACC Culture Trigger YES
[2023-08-21 06:11] LABS: Amphetamine Screen Urine Not Detected (Not Detect); Barbiturates, Urine Not Detected (Not Detect); Benzodiazepines Screen Urine Not Detected (Not Detect); Cannabinoid Screen Urine Not Detected (Not Detect); Cocaine Screen Urine POSITIVE (Not Detect); Fentanyl, urine POSITIVE (Not Detect); Opiate Screen Urine Not Detected (Not Detect); Phencyclidine Screen Urine Not Detected (Not Detect)
[2023-08-21 06:22] LABS: MANUAL DIFF FLAG NO
[2023-08-21 06:28] LABS: Basophils Absolute Auto 0.1 X10*3/uL (0.0-0.2); Basophils Percent Auto 0.4 % (0-2); Hematocrit 42.6 % (37.0-47.0); Hemoglobin 14.2 g/dl (12.0-16.0); Imm Gran Abs Auto 0.12 X10*3/uL (0.00-0.03); Imm Gran Pct Auto 0.9 % (0.0-0.4); Lymphocytes Absolute Auto 1.7 X10*3/uL (1.2-4.9); Lymphocytes Percent Auto 12.6 % (20-40); Mean Corpuscular HGB Conc 33.3 g/dl (31.0-35.0); Mean Corpuscular Hemoglobin 31.6 pg (27.0-33.0); Mean Corpuscular Volume 94.9 fL (80.0-98.0); Mean Platelet Volume 9.4 fL (9.4-12.3); Monocytes Absolute Auto 0.5 X10*3/uL (0.1-1.2); Monocytes Percent Auto 3.7 % (2-11); Neutrophils Absolute Auto 10.8 x10*3/uL (2.0-8.3); Neutrophils Percent Auto 82.4 % (45-73); Platelet Count 349 X10*3/uL (160-400); Red Blood Count 4.49 X10*6/uL (4.20-5.50); Red Cell Distribution Width 13.3 % (11.0-16.0); White Blood Count 13.1 X10*3/uL (4.8-10.8)
[2023-08-21 06:35] LABS: Alanine Aminotransferase 51 U/L (0-31); Albumin Level 4.8 g/dL (3.5-5.0); Alkaline Phosphatase 44 U/L (39-117); Anion Gap 20 (12-20); Aspartate Amino Transferase 129 U/L (5-31); Bilirubin Total 0.4 mg/dL (0.0-1.0); Blood Urea Nitrogen 18 mg/dL (9-16); Calcium 9.6 mg/dL (8.4-10.2); Carbon Dioxide 21 mmol/L (22-29); Chloride 107 mmol/L (96-108); Creatinine Clr Calc Pharmacy 81.6; Estimated Glomerular Filt Rate 56; Ethanol 77 mg/dL; Glucose Random 101 mg/dL (60-115); Magnesium 2.3 mg/dL (1.6-2.6); Sodium 144 mmol/L (135-145)
--- NOTE | 2023-08-21 07:34 | ECG_ITS ---
Test Reason : DRUG USED Blood Pressure : / mmHG Vent. Rate : 080 BPM Atrial Rate : 080 BPM P-R Int : 154 ms QRS Dur : 094 ms QT Int : 414 ms P-R-T Axes : 066 017 029 degrees QTc Int : 477 ms Normal sinus rhythm Nonspecific ST abnormality Abnormal ECG When compared with ECG of 07-MAR-2023 13:16, T wave amplitude has increased in Anterior leads Referred By: Larry Dinero Electronically Signed By:NAILA DOWLING MD
--- NOTE | 2023-08-21 08:43 | PC.NURSE ---
Pt resting comfortably in bed, repositioning self. awaiting evaluation.
--- NOTE | 2023-08-21 09:19 | PC.NURSE ---
Pt now awake, CARE team states pt will be dispo'd. Meal provided.
--- NOTE | 2023-08-21 10:48 | MHC.RECOVSUP ---
Met pt in [facility] who is here for [facility]. Pt informs she got out of [facility] yesterday and used an unsure amount of alcohol and crack and is currently prescribed Suboxone. Pt has a bridge script to hold her over until her appointment on the at [facility]. pt is planning to go to the [facility] and will follow up with [facility] to find housing. At this time pt is not looking for ATS and was provided resources for recovery and housing. Pt has no other questions or concerns at this time.
== END 2023-08-21 10:25 | disposition home or self-care (01) ==
PROVIDERS: Emergency Provider Internal Medicine
DX: R45.851 Suicidal ideations (principal); F19.10 Other psychoactive substance abuse, uncomplicated; F10.10 Alcohol abuse, uncomplicated; Y90.3 Blood alcohol level of 60-79 mg/100 ml; F14.10 Cocaine abuse, uncomplicated; F43.10 Post-traumatic stress disorder, unspecified
CPT/HCPCS: 36415; 80053; 80307; 81001; 81025; 83735; 85025; 87086; 87147; 93005; 99284; 99285; S9485

== ENCOUNTER → 2023-08-21 07:34 | Outpatient (BNV) | payer MEDICAID, SELFPAY | PROVIDERS: Emergency Provider Internal Medicine; Visit Provider Internal Medicine Cardiovascular Disease | DX: R94.31 Abnormal electrocardiogram [ECG] [EKG] (principal) | CPT/HCPCS: 93010 ==

== ENCOUNTER 2023-11-13 04:55 | Inpatient (IN) | payer MEDICAID, OTHER, SELFPAY ==
[2023-11-13 05:07] VITALS: BP 160/80; PULSE 82; O2SAT 99; BMI 35.5
[2023-11-13 05:15] VITALS: BP 148/99; PULSE 82; RESP 17; TEMP 36.7; O2SAT 99
--- NOTE | 2023-11-13 05:29 | MHC.EDTECH ---
Patient came in by ambulance,changed into crisis attire,security at bedside took all belongings to [facility]. 1-1 sitter at bedside for safety
[2023-11-13 05:57] LABS: Hemoglobin 12.6 g/dl (12.0-16.0); PLT CLUMP 1; SCAN SMEAR FLAG 1
[2023-11-13 05:58] LABS: Basophils Absolute Auto 0.1 X10*3/uL (0.0-0.2); Basophils Percent Auto 1.3 % (0-2); Eosinophils Absolute Auto 0.2 X10*3/uL (0.0-0.4); Eosinophils Percent Auto 2.8 % (0-4); Imm Gran Abs Auto 0.02 X10*3/uL (0.00-0.03); Imm Gran Pct Auto 0.3 % (0.0-0.4); Lymphocytes Absolute Auto 2.2 X10*3/uL (1.2-4.9); Lymphocytes Percent Auto 36.2 % (20-40); Mean Corpuscular HGB Conc 32.3 g/dl (31.0-35.0); Mean Corpuscular Volume 96.1 fL (80.0-98.0); Mean Platelet Volume 9.8 fL (9.4-12.3); Monocytes Absolute Auto 0.5 X10*3/uL (0.1-1.2); Monocytes Percent Auto 8.7 % (2-11); Neutrophils Absolute Auto 3.1 x10*3/uL (2.0-8.3); Neutrophils Percent Auto 50.7 % (45-73); Red Blood Count 4.06 X10*6/uL (4.20-5.50); Red Cell Distribution Width 15.2 % (11.0-16.0)
[2023-11-13 05:59] LABS: MANUAL DIFF FLAG NO; White Blood Count 6.1 X10*3/uL (4.8-10.8)
--- NOTE | 2023-11-13 06:01 | ED.PSYCH ---
HPI - Psych General Chief Complaint: Psychiatric Symptoms Stated Complaint: SI/SUBSTANCE ABUSE Time Seen by Provider: 11/13/23 05:56 Source: patient and EMS Mode of arrival: EMS Limitations: no limitations History of Present Illness HPI Narrative: Patient comes to the emergency room complaining of suicidal ideation. Patient was found in a [employer] gas station. Patient had intentionally overdose with 5 bags of fentanyl, told EMS that she tried to kill herself.. Patient denies homicidal ideation. Per EMS, they gave her 4 mg of Narcan prior to arrival. At this time, patient lethargic, wakes up but falls back asleep, unable to give clear history other than the above-mentioned. Related Data Previous Rx's Medication Instructions Recorded bupropion HCl 150 mg 24 hr tablet, 150 mg PO DAILY 30 days #30 tabs 03/08/23 extended release hydroxyzine HCl 25 mg tablet 25 mg PO BID PRN Anxiety 30 days 03/08/23 #60 tabs thiamine mononitrate (vit B1) 100 100 mg PO DAILY 30 days #30 tabs 03/08/23 mg tablet trazodone 50 mg tablet 50 mg PO BEDTIME MRX1 30 days #30 03/08/23 tabs venlafaxine 37.5 mg 37.5 mg PO DAILY 30 days #30 caps 03/08/23 capsule,extended release 24 hr buprenorphine 8 mg-naloxone 2 mg 1 film sublingual BID@0800,1800 03/13/23 sublingual film (Suboxone) #14 ea guanfacine 1 mg tablet,extended 1 mg PO DAILY #15 tabs 03/13/23 release 24 hr oxcarbazepine 300 mg tablet 600 mg (2 x 300 mg) PO BID #60 tabs 03/13/23 risperidone 1 mg tablet 1 mg PO BEDTIME #30 tabs 03/13/23 Allergies Allergy/AdvReac Type Severity Reaction Status Date / Time No Known Allergies Allergy Verified 08/21/23 04:15 Review of Systems Review of Systems: Yes Unobtainable due to mental condition and Unobtainable due to mental status [facility] Past Medical History Medical History Pre-op evaluation Major depressive disorder Chronic schizophrenia Alcohol abuse Social History Social History Household Members: None Housing: Homeless Alcohol intake: current Alcohol intake frequency: 3 or more drinks per day Alcohol type: hard liquor Patient Tobacco Use Status: Never used Tobacco Smoked in Last 30 Days: No Substance Use Type: Crack/Cocaine and Heroin service: No Sexual orientation: Straight/Heterosexual Physical Exam Vital Signs: Vital Signs: Last Vital Signs Temp 98.1 F 11/13/23 06:10 Pulse 77 11/13/23 06:10 Resp 14 11/13/23 06:10 BP 142/94 H 11/13/23 06:10 Pulse Ox 98 11/13/23 06:10 O2 Del Method Room Air 11/13/23 06:10 BMI result Body Mass Index 35.5 Const: Other: Appearance: Somnolent, wakes up to voice and sternal rub, answers questions with yes or no , opens her eyes and falls back asleep Eyes: Pupils equal, round and reactive to light. ENT: Pharynx normal. Neck: Normal inspection. Neck supple. No lymph nodes noted. No crepitus CVS: Normal heart rate and rhythm. Pulses normal. Normal S1 and S2 Respiratory: No respiratory distress. Breath sounds normal. No Wheezing. No rales Abdomen: Soft and nontender. No rigidity. No distention. Skin: Skin warm and dry. Normal skin color. Normal skin turgor. Extremities: No lower extremity edema. No Lacerations. No Rash Neuro: Very somnolent Psych: Somnolent, call Course Course Course Narrative: -all of patient's labs pending -patient states she only use fentanyl, denies using ETOH -patient is on a Section 12 -care team consult pending -physician observation started at 06:05 Medical Decision Making Medical Decision Making [facility] Narrative: -my interpretation of labs: Hematology within normal limits, platelet count pending. Chemistry within normal limits, LFTs normal, urine positive, salicylates and acetaminophen levels negative -patient remains on a Section 12 -patient is still somnolent, oxygen saturation in the high 90s on room air -once patient wakes up, care team to evaluate the patient. Patient likely to be admitted -physician observation started at 07:00 -sign out given to my colleage Dr. Kunz Differential Diagnosis Differential Diagnoses: The differential diagnosis associated with the presentation includes (Anxiety, depression, polysubstance abuse, schizophrenia) Admission/Observation Consideration of admission/observation: Escalation of care including admission/observation considered (Patient likely to be admitted for psychiatric evaluation and treatment) Lab Data MDM Lab Attestation statement: I reviewed the patient's lab results. 11/13/23 05:44 11/13/23 05:44 Labs: Lab Results 11/13/23 11/13/23 Range/Units 05:44 06:17 WBC 6.1 (4.8-10.8) X10*3/uL RBC 4.06 L (4.20-5.50) X10*6/uL Hgb 12.6 (12.0-16.0) g/dl Hct 39.0 (37.0-47.0) % MCV 96.1 (80.0-98.0) fL MCH 31.0 (27.0-33.0) pg MCHC 32.3 (31.0-35.0) g/dl RDW 15.2 (11.0-16.0) % Plt Count 265 (160-400) X10*3/uL MPV 9.8 (9.4-12.3) fL Immature Gran % (Auto) 0.3 (0.0-0.4) % Neut % (Auto) 50.7 (45-73) % Lymph % (Auto) 36.2 (20-40) % [place] % (Auto) 8.7 (2-11) % Eos % (Auto) 2.8 (0-4) % Baso % (Auto) 1.3 (0-2) % Lymph # (Auto) 2.2 (1.2-4.9) X10*3/uL [place] # (Auto) 0.5 (0.1-1.2) X10*3/uL Eos # (Auto) 0.2 (0.0-0.4) X10*3/uL Baso # (Auto) 0.1 (0.0-0.2) X10*3/uL Abs Immat Gran (auto) 0.02 (0.00-0.03) X10*3/uL Absolute Neuts (auto) 3.1 (2.0-8.3) x10*3/uL Absolute Nucleated RBC 0.000 (0.0-0.012) X10*3/uL Nucleated RBC % (auto) 0.0 (0.0-0.2) /100WBC Sodium 138 (135-145) mmol/L Potassium 3.7 (3.3-5.1) mmol/L Chloride 107 (96-108) mmol/L Carbon Dioxide 23 (22-29) mmol/L Anion Gap 12 (12-20) BUN 6 L (9-16) mg/dL Creatinine 0.78 (0.5-1.4) mg/dL Estim Creat Clear Calc 121.0 Estimated GFR > 60 Random Glucose 93 (60-115) mg/dL Calcium 8.6 D (8.4-10.2) mg/dL Total Bilirubin 0.3 (0.0-1.0) mg/dL Direct Bilirubin 0.1 (0.0-0.5) mg/dL AST 19 (5-31) U/L ALT 21 (0-31) U/L Alkaline Phosphatase 44 (39-117) U/L Total Protein 7.0 (6.5-8.0) g/dL Albumin 4.0 (3.5-5.0) g/dL Salicylates < 5.0 L (15-30) mg/dL Acetaminophen < 3 (<30) mcg/mL Ethyl Alcohol < 10 mg/dL Critical Care Time Critical Care Time Critical Care Time: Yes Total Critical Care Time: 35 Attestation: I have personally provided critical care time. Time includes review of lab data, radiology results, discussion with consultants, and monitoring for potential decompensation. Intervention performed as documented. Discharge Plan Discharge Clinical Impression: Polysubstance abuse, Suicide attempt Patient Disposition: Still a Patient Prescriptions: No Action venlafaxine 37.5 mg Capsule,Extended Release 24hr 37.5 mg PO DAILY 30 Days Qty: 30 0RF trazodone 50 mg Tablet 50 mg PO BEDTIME MRX1 30 Days Qty: 30 0RF hydroxyzine HCl 25 mg Tablet 25 mg PO BID PRN (Reason: Anxiety) 30 Days Qty: 60 0RF bupropion HCl 150 mg Tablet Extended Release 24 Hr 150 mg PO DAILY 30 Days Qty: 30 0RF thiamine mononitrate (vit B1) 100 mg Tablet 100 mg PO DAILY 30 Days Qty: 30 0RF oxcarbazepine 300 mg Tablet 600 mg PO BID Qty: 60 0RF risperidone 1 mg Tablet 1 mg PO BEDTIME Qty: 30 0RF guanfacine 1 mg Tablet Extended Release 24 Hr 1 mg PO DAILY Qty: 15 0RF buprenorphine-naloxone [Suboxone] 8-2 mg Film 1 film sublingual BID@0800,1800 Qty: 14 0RF Interventions: Bath-Suicide Risk Severity Scale Last Done: 11/13/23 05:15
[2023-11-13 06:05] LABS: Alanine Aminotransferase 21 U/L (0-31); Alkaline Phosphatase 44 U/L (39-117); Anion Gap 12 (12-20); Aspartate Amino Transferase 19 U/L (5-31); Bilirubin Direct 0.1 mg/dL (0.0-0.5); Bilirubin Total 0.3 mg/dL (0.0-1.0); Blood Urea Nitrogen 6 mg/dL (9-16); Calcium 8.6 mg/dL (8.4-10.2); Carbon Dioxide 23 mmol/L (22-29); Chloride 107 mmol/L (96-108); Estimated Glomerular Filt Rate > 60; Ethanol < 10 mg/dL; Glucose Random 93 mg/dL (60-115); Potassium 3.7 mmol/L (3.3-5.1); Sodium 138 mmol/L (135-145)
[2023-11-13 06:10] VITALS: BP 142/94; PULSE 77; RESP 14; TEMP 36.7; O2SAT 98
[2023-11-13 06:11] LABS: Platelet Count 265 X10*3/uL (160-400)
[2023-11-13 06:46] LABS: Acetaminophen LAB < 3 mcg/mL (<30); Salicylate < 5.0 mg/dL (15-30)
[2023-11-13 10:36] VITALS: BP 118/64; PULSE 94; RESP 14; O2SAT 98
--- NOTE | 2023-11-13 13:00 | PC.NURSE ---
pt multiple times declined to give a urine sample. care team came to bedside to talk with pt and explained this will delay her evaluation. pt given cran juice. no resp distress, breathing regularly. sitter 1;1 remains with pt at bedside.
[2023-11-13 16:24] LABS: Amphetamine Screen Urine Not Detected (Not Detect); Barbiturates, Urine Not Detected (Not Detect); Benzodiazepines Screen Urine Not Detected (Not Detect); Cannabinoid Screen Urine POSITIVE (Not Detect); Cocaine Screen Urine POSITIVE (Not Detect); Fentanyl, urine Not Detected (Not Detect); Opiate Screen Urine Not Detected (Not Detect); Phencyclidine Screen Urine POSITIVE (Not Detect)
[2023-11-13 16:32] VITALS: BP 144/84; PULSE 77; O2SAT 99
[2023-11-13 16:39] LABS: Appearance Urine Turbid; Color Urine Orange; Glucose Urine UA Negative (Negative); Leukocyte Esterase Urine Small (1+) (Negative); Nitrite Urine Negative (Negative); PH 6.5 (5.0-9.0); Specific Gravity - Urine >= 1.030 (1.005-1.025); UMIC TRIGGER UACC YES; Urine Blood Large (3+) (Negative); Urine Ketones 15 mg/dL (Negative); Urine Protein 100 (2+) mg/dL (Neg-Trace)
[2023-11-13 16:40] LABS: Bacteria Urine 3+ (None Seen); Hyaline Casts Urine 0-2 /LPF (0-2); RBC Urine >20 /HPF (0-2); UACC Culture Trigger YES
--- NOTE | 2023-11-13 17:00 | PC.NURSE ---
jerry higuera pharmacist [facility] will complete med list for pt.
[2023-11-13 20:00] VITALS: RESP 18
--- NOTE | 2023-11-13 20:45 | PC.NURSE ---
assumed care of pt at 1900.pt sleeping deeply. respiration even and unlabored unable to answer questions regarding medications at this time. will attempt to complete med rec when pt is alert and oriented.
--- NOTE | 2023-11-14 | ECG_ITS ---
Test Reason : QT INTERVAL Blood Pressure : / mmHG Vent. Rate : 074 BPM Atrial Rate : 074 BPM P-R Int : 132 ms QRS Dur : 082 ms QT Int : 398 ms P-R-T Axes : 053 043 043 degrees QTc Int : 441 ms Sinus rhythm with marked sinus arrhythmia Otherwise normal ECG When compared with ECG of 21-AUG-2023 04:23, No significant change was found Referred By: Steff Bowens Electronically Signed By:NAILA DOWLING MD
--- NOTE | 2023-11-14 01:28 | PC.NURSE ---
Pt ambulated to bathroom with exaggerated limp. denies pain. endorsing SI. Denies HI/AH/Vh. Requested and provided cranberry juice and turkey sandwich. T/w offered to set pt up for a shower. Pt declined. pungent smell noted.
[2023-11-14 06:17] VITALS: BP 154/88; PULSE 83; RESP 16; TEMP 36.6; O2SAT 100
[2023-11-14 08:46] LABS: COVID-19 Test Negative (Negative); IDNOW Serial# 152EDE1D
--- NOTE | 2023-11-14 10:19 | PC.NURSE ---
called pharmacy to request med req at this time.
--- NOTE | 2023-11-14 11:23 | PC.NURSE ---
mixing technician came to do a Med reconciliation. Patient doesn't know her medications.
--- NOTE | 2023-11-14 11:58 | HE.PHANOTE ---
Tried to talk to patient about her home medications but she didn't know what she takes, couldn't tell which pharmacy she uses and kept saying that she needs new meds .
--- NOTE | 2023-11-14 12:51 | PC.NURSE ---
Dr. Whitley came to see the patient regarding her Urine states patients is not having any symptoms of UTI. wrote an addendum regarding this.
[2023-11-14 16:12] VITALS: BP 146/92; PULSE 94; RESP 18; TEMP 36.9; O2SAT 99
[2023-11-14] MEDS: hydrOXYzine HCL 25 MG TABLET PO (17:27)
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
[2023-11-14 18:27] VITALS: BMI 37.1
--- NOTE | 2023-11-14 18:29 | PC.NURSE ---
Pt refused Flu Vaccine
--- NOTE | 2023-11-14 18:29 | PC.NURSE ---
Pt refused to sign legal forms and BH treatment plan, BH Belongings, BH safety tool
[2023-11-14 21:11] VITALS: BP 125/73; PULSE 92; RESP 16; TEMP 36.6; O2SAT 96
[2023-11-14] MEDS: Buprenorphine/Naloxone 8/2 mg FILM 1 FILM SUBLINGUAL (21:16)
[2023-11-14] MEDS: traZODone HCL 50 MG TABLET PO (21:16)
[2023-11-14] MEDS: OLANZapine 10 MG TABLET PO (21:16)
[2023-11-14] MEDS: Topiramate 25 MG TABLET PO (21:16)
[2023-11-15 06:00] VITALS: BP 147/83; PULSE 93; RESP 14; TEMP 37.2; O2SAT 94
[2023-11-15 08:21] LABS: Estimated Average Glucose 97 mg/dL
[2023-11-15 08:35] LABS: Cholesterol 127 mg/dL (<200); HDL Cholesterol 49 mg/dL (>40); LDL Cholesterol Calculated 49 mg/dL (<100); Triglycerides 149 mg/dL (<150)
[2023-11-15 08:50] LABS: Free T4 (Free Thyroxine) 0.77 ng/dL (0.71-1.85); Thyroid Stimulating Hormone 2.72 uIU/mL (0.32-4.0)
[2023-11-15] MEDS: hydrOXYzine HCL 25 MG TABLET PO (08:58)
[2023-11-15] MEDS: Buprenorphine/Naloxone 8/2 mg FILM 1 FILM SUBLINGUAL ×2 (08:58→19:06)
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
[2023-11-15 09:02] LABS: Folate 7.9 ng/mL (> or = 4.0); Vitamin B12 513 pg/mL (200-900)
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
[2023-11-15] MEDS: hydrOXYzine HCL 50 MG TABLET PO ×2 (12:48→20:12)
[2023-11-15] MEDS: LORazepam 1 MG TABLET PO (17:00)
[2023-11-15] MEDS: diphenhydrAMINE HCL 25 MG CAPSULE 50 MG PO ×2 (17:00→23:44)
[2023-11-15] MEDS: Tobramycin Sulfate 0.3% Sol Op 5 ML BTL 2 DROP EYE-LEFT ×2 (17:01→20:15)
[2023-11-15] MEDS: traZODone HCL 50 MG TABLET 150 MG PO (20:11)
[2023-11-15] MEDS: OLANZapine 10 MG TABLET PO (20:12)
[2023-11-15] MEDS: predniSONE 1 MG TABLET 4 MG PO (20:12)
[2023-11-15] MEDS: Topiramate 25 MG TABLET PO (20:13)
[2023-11-15] MEDS: Acetaminophen 325 MG TABLET 650 MG PO (23:45)
[2023-11-16] MEDS: Magnesium Hydrox/Alum Hydrox 30 ML ORAL.SUSP PO (01:57)
[2023-11-16 07:40] VITALS: BP 140/78; PULSE 84; RESP 14; TEMP 36.9; O2SAT 97
[2023-11-16] MEDS: predniSONE 1 MG TABLET 4 MG PO ×3 (08:36→20:12)
[2023-11-16] MEDS: Buprenorphine/Naloxone 8/2 mg FILM 1 FILM SUBLINGUAL ×2 (08:36→17:56)
[2023-11-16] MEDS: Tobramycin Sulfate 0.3% Sol Op 5 ML BTL 2 DROP EYE-LEFT ×3 (08:40→20:30)
[2023-11-16] MEDS: hydrOXYzine HCL 50 MG TABLET PO ×2 (09:33→14:03)
--- NOTE | 2023-11-16 11:29 | P.PNPSI_ITS ---
Subjective Subjective Date of Service: 11/16/23 Reason For Visit: SI/SUBSTANCE ABUSE Subjective Notes: Conditional Voluntary Interim History: met with patient. Discussed with Nursing. Has been isolative. Getting ear drops for infection. Overall reports things are going okay. No complaints. Intermittent suicidal thoughts. No hallucinations. Ear pain ongoing, but has started drops for same. Appetite good and discontinues allergy of tomatoes in records, so patient can order rice and beans Review of Systems Review of Systems no acute changes Mental Status Exam Mental Status Exam Narrative: pleasant. Engaged. Hospital clothing. Self-care okay. Organized. Largely euthymic. Intermittent SI no plans or intent. No HI. No agitation or psychosis. Insight and judgment fair Diagnostics Vital Signs (24Hr): Vital Signs - 24 hr 11/16/23 07:40 Temperature 98.5 F Pulse Rate 84 Respiratory Rate 14 Blood Pressure 140/78 H Pulse Oximetry 97 Oxygen Delivery Method Room Air BMI result Body Mass Index 37.1 Labs 11/13/23 05:44 11/13/23 05:44 Labs: Laboratory Results - last 48 hr 11/15/23 08:07 Estimat Average Glucose 97 Hemoglobin A1c % 5.0 Triglycerides 149 Cholesterol 127 LDL Cholesterol, Calc 49 HDL Cholesterol 49 Vitamin B12 513 Folate 7.9 TSH 2.72 Free T4 0.77 Medications Medications Current Medications Acetaminophen (Acetaminophen 325 Mg Tablet) 650 mg PO Q6H PRN PRN Reason: Headache/Pain Mild Scale (1-3) Last Admin: 11/15/23 23:45 Dose: 650 mg Al Hydroxide/Mg Hydroxide (Magnesium Hydrox/Alum Hydrox 30 Ml Oral.Susp) 30 ml PO Q6H PRN PRN Reason: Heartburn/Nausea Last Admin: 11/16/23 01:57 Dose: 30 ml Buprenorphine/Naloxone (Buprenorphine/Naloxone 8/2 Mg Film) 1 film SUBLINGUAL BID@0800,1800 GABRIELA Last Admin: 11/16/23 08:36 Dose: 1 film Diphenhydramine HCl (Diphenhydramine Hcl 25 Mg Capsule) 50 mg PO Q6H PRN PRN Reason: Itching Last Admin: 11/15/23 23:44 Dose: 50 mg Hydroxyzine HCl (Hydroxyzine Hcl 50 Mg Tablet) 50 mg PO Q4H PRN PRN Reason: Anxiety Last Admin: 11/16/23 09:33 Dose: 50 mg Lorazepam (Lorazepam 1 Mg Tablet) 1 mg PO Q2H PRN PRN Reason: CIWA 8-11 Last Admin: 11/15/23 17:00 Dose: 1 mg Lorazepam (Lorazepam 1 Mg Tablet) 2 mg PO Q2H PRN PRN Reason: CIWA 12-15 Lorazepam (Lorazepam 1 Mg Tablet) 3 mg PO Q2H PRN PRN Reason: CIWA > 15; and call Magnesium Hydroxide (Milk Of Magnesia 30 Ml Oral.Susp) 30 ml PO DAILY PRN PRN Reason: Constipation Nicotine Polacrilex (Nicotine Polacrilex 2 Mg Gum) 4 mg BUCCAL Q2H PRN PRN Reason: Nicotine Cravings Olanzapine (Olanzapine 5 Mg Tablet) 5 mg PO DAILY PRN PRN Reason: agitation Olanzapine (Olanzapine 10 Mg Tablet) 10 mg PO BEDTIME GABRIELA Last Admin: 11/15/23 20:12 Dose: 10 mg Prednisone (Prednisone 1 Mg Tablet) 4 mg PO TID GABRIELA Stop: 11/18/23 14:59 Last Admin: 11/16/23 08:36 Dose: 4 mg Tobramycin Sulfate (Tobramycin Sulfate 0.3% Milvia Op 5 Ml Btl) 2 drop EYE-LEFT TID GABRIELA Stop: 11/22/23 14:59 Last Admin: 11/16/23 08:40 Dose: 2 drop Topiramate (Topiramate 25 Mg Tablet) 25 mg PO BEDTIME GABRIELA Last Admin: 11/15/23 20:13 Dose: 25 mg Trazodone HCl (Trazodone Hcl 50 Mg Tablet) 150 mg PO BEDTIME PRN PRN Reason: Insomnia Last Admin: 11/15/23 20:11 Dose: 150 mg Allergies Allergies Allergy/AdvReac Type Severity Reaction Status Date / Time tomato Allergy Unknown Verified 11/14/23 18:12 Assessment & Plan Assessment & Plan (1) PTSD (post-traumatic stress disorder): Status: Acute Code(s): F43.10 - Post-traumatic stress disorder, unspecified (2) Opioid use disorder: Status: Acute Code(s): F11.90 - Opioid use, unspecified, uncomplicated (3) Cannabis use disorder: Status: Acute Code(s): F12.90 - Cannabis use, unspecified, uncomplicated (4) Cocaine use disorder: Status: Acute Code(s): F14.10 - Cocaine abuse, uncomplicated (5) Alcohol use disorder: Status: Acute Code(s): F10.90 - Alcohol use, unspecified, uncomplicated (6) PCP (phencyclidine) abuse: Status: Acute Code(s): F16.10 - Hallucinogen abuse, uncomplicated Plan ativan per [facility] protocol for alcohol use. suboxone for opioid use disorder. restart prior psych regimen. supportive care for withdrawal from other substances. refer for rehab. 11/15: no changes Reason for continued inpatient stay Substantial Risk for: harm to self and rapid decompensation Time Spent With Patient Time: Total time managing care of this patient today ____ minutes.
[2023-11-16 19:45] VITALS: BP 138/74; PULSE 92; RESP 16; TEMP 36.8; O2SAT 99
[2023-11-16] MEDS: LORazepam 1 MG TABLET PO (20:10)
[2023-11-16] MEDS: OLANZapine 10 MG TABLET PO (20:11)
[2023-11-16] MEDS: diphenhydrAMINE HCL 25 MG CAPSULE 50 MG PO (20:11)
[2023-11-16] MEDS: Topiramate 25 MG TABLET PO (20:12)
[2023-11-17 07:25] VITALS: BP 115/75; PULSE 91; RESP 16; TEMP 36.5; O2SAT 99
[2023-11-17] MEDS: Buprenorphine/Naloxone 8/2 mg FILM 1 FILM SUBLINGUAL ×2 (08:17→17:35)
[2023-11-17] MEDS: Tobramycin Sulfate 0.3% Sol Op 5 ML BTL 2 DROP EYE-LEFT ×3 (09:17→20:32)
[2023-11-17] MEDS: predniSONE 1 MG TABLET 4 MG PO ×3 (09:44→20:32)
[2023-11-17] MEDS: hydrOXYzine HCL 50 MG TABLET PO ×2 (09:47→19:23)
--- NOTE | 2023-11-17 12:05 | HO.PSYCHPN ---
Subjective Subjective Date of Service: 11/17/23 Reason For Visit: SI/SUBSTANCE ABUSE Subjective Notes: Conditional Voluntary Interim History: met with patient. Discussed with Nursing. Has been isolative. Overall reports things are going okay, with exception of ear discomfort and itcy thighs/rash (discussed cream). Intermittent suicidal thoughts. No hallucinations. Medication Compliance: Yes Side effects from medications: No Attending Groups: Intermittent Review of Systems Acute medical concerns: No Review of Systems Review of Systems no acute changes Mental Status Exam Mental Status Exam Narrative: pleasant. Engaged. Hospital clothing. Self-care okay. Organized. Largely euthymic. Intermittent SI no plans or intent. No HI. No agitation or psychosis. Insight and judgment fair Diagnostics Vital Signs (24Hr): Vital Signs - 24 hr 11/16/23 19:45 11/17/23 07:25 Temperature 98.3 F 97.7 F Pulse Rate 92 91 Respiratory Rate 16 16 Blood Pressure 138/74 115/75 Pulse Oximetry 99 99 Oxygen Delivery Method Room Air Room Air BMI result Body Mass Index 37.1 Labs 11/13/23 05:44 11/13/23 05:44 Medications Medications Current Medications Acetaminophen (Acetaminophen 325 Mg Tablet) 650 mg PO Q6H PRN PRN Reason: Headache/Pain Mild Scale (1-3) Last Admin: 11/15/23 23:45 Dose: 650 mg Al Hydroxide/Mg Hydroxide (Magnesium Hydrox/Alum Hydrox 30 Ml Oral.Susp) 30 ml PO Q6H PRN PRN Reason: Heartburn/Nausea Last Admin: 11/16/23 01:57 Dose: 30 ml Buprenorphine/Naloxone (Buprenorphine/Naloxone 8/2 Mg Film) 1 film SUBLINGUAL BID@0800,1800 GABRIELA Last Admin: 11/17/23 08:17 Dose: 1 film Diphenhydramine HCl (Diphenhydramine Hcl 25 Mg Capsule) 50 mg PO Q6H PRN PRN Reason: Itching Last Admin: 11/16/23 20:11 Dose: 50 mg Hydroxyzine HCl (Hydroxyzine Hcl 50 Mg Tablet) 50 mg PO Q4H PRN PRN Reason: Anxiety Last Admin: 11/17/23 09:47 Dose: 50 mg Lorazepam (Lorazepam 1 Mg Tablet) 1 mg PO Q2H PRN PRN Reason: CIWA 8-11 Last Admin: 11/16/23 20:10 Dose: 1 mg Lorazepam (Lorazepam 1 Mg Tablet) 2 mg PO Q2H PRN PRN Reason: CIWA 12-15 Lorazepam (Lorazepam 1 Mg Tablet) 3 mg PO Q2H PRN PRN Reason: CIWA > 15; and call Magnesium Hydroxide (Milk Of Magnesia 30 Ml Oral.Susp) 30 ml PO DAILY PRN PRN Reason: Constipation Nicotine Polacrilex (Nicotine Polacrilex 2 Mg Gum) 4 mg BUCCAL Q2H PRN PRN Reason: Nicotine Cravings Olanzapine (Olanzapine 5 Mg Tablet) 5 mg PO DAILY PRN PRN Reason: agitation Olanzapine (Olanzapine 10 Mg Tablet) 10 mg PO BEDTIME GABRIELA Last Admin: 11/16/23 20:11 Dose: 10 mg Prednisone (Prednisone 1 Mg Tablet) 4 mg PO TID GABRIELA Stop: 11/18/23 14:59 Last Admin: 11/17/23 09:44 Dose: 4 mg Tobramycin Sulfate (Tobramycin Sulfate 0.3% Mlivia Op 5 Ml Btl) 2 drop EYE-LEFT TID GABRIELA Stop: 11/22/23 14:59 Last Admin: 11/17/23 09:17 Dose: 2 drop Topiramate (Topiramate 25 Mg Tablet) 25 mg PO BEDTIME GABRIELA Last Admin: 11/16/23 20:12 Dose: 25 mg Trazodone HCl (Trazodone Hcl 50 Mg Tablet) 150 mg PO BEDTIME PRN PRN Reason: Insomnia Last Admin: 11/15/23 20:11 Dose: 150 mg Assessment & Plan Assessment & Plan (1) PTSD (post-traumatic stress disorder): Status: Acute Code(s): F43.10 - Post-traumatic stress disorder, unspecified (2) Opioid use disorder: Status: Acute Code(s): F11.90 - Opioid use, unspecified, uncomplicated (3) Cannabis use disorder: Status: Acute Code(s): F12.90 - Cannabis use, unspecified, uncomplicated (4) Cocaine use disorder: Status: Acute Code(s): F14.10 - Cocaine abuse, uncomplicated (5) Alcohol use disorder: Status: Acute Code(s): F10.90 - Alcohol use, unspecified, uncomplicated (6) PCP (phencyclidine) abuse: Status: Acute Code(s): F16.10 - Hallucinogen abuse, uncomplicated Plan ativan per [facility] protocol for alcohol use. suboxone for opioid use disorder. restart prior psych regimen. supportive care for withdrawal from other substances. refer for rehab. 11/15: no changes 11/16: no changes Reason for continued inpatient stay Substantial Risk for: rapid decompensation Time Spent With Patient Time: Total time managing care of this patient today ____ minutes.
[2023-11-17 12:20] VITALS: BP 123/69; PULSE 105; RESP 18; TEMP 36.6; O2SAT 97
[2023-11-17] MEDS: LORazepam 1 MG TABLET PO (12:31)
[2023-11-17] MEDS: Ibuprofen 600 MG TABLET PO (17:49)
[2023-11-17] MEDS: diphenhydrAMINE HCL 25 MG CAPSULE 50 MG PO (19:23)
[2023-11-17 20:15] VITALS: BP 123/72; PULSE 93; RESP 16; TEMP 36.6; O2SAT 96
[2023-11-17] MEDS: OLANZapine 10 MG TABLET PO (20:32)
[2023-11-17] MEDS: Hydrocortisone 1 % Cream 28.35 GM TUBE 1 APPL TOPICAL (20:32)
[2023-11-17] MEDS: Topiramate 25 MG TABLET PO (20:32)
[2023-11-17] MEDS: traZODone HCL 50 MG TABLET 150 MG PO (22:13)
[2023-11-17] MEDS: OLANZapine 5 MG TABLET PO (22:13)
[2023-11-18] MEDS: hydrOXYzine HCL 50 MG TABLET PO ×2 (04:06→20:43)
[2023-11-18 06:00] VITALS: BP 135/75; PULSE 95; RESP 14; TEMP 36.9; O2SAT 98
[2023-11-18] MEDS: predniSONE 1 MG TABLET 4 MG PO (08:22)
[2023-11-18] MEDS: Buprenorphine/Naloxone 8/2 mg FILM 1 FILM SUBLINGUAL ×2 (08:23→17:54)
[2023-11-18] MEDS: Tobramycin Sulfate 0.3% Sol Op 5 ML BTL 2 DROP EYE-LEFT ×3 (08:24→21:20)
[2023-11-18] MEDS: diphenhydrAMINE HCL 25 MG CAPSULE 50 MG PO ×2 (09:12→20:43)
[2023-11-18] MEDS: Hydrocortisone 1 % Cream 28.35 GM TUBE 1 APPL TOPICAL (09:13)
--- NOTE | 2023-11-18 14:38 | P.PNPSI_ITS ---
Subjective Subjective Date of Service: 11/18/23 Reason For Visit: SI/SUBSTANCE ABUSE Interim History: depressing w/e due to missing her kids' bdays. discusses homelessness as her biggest challenge, feels she could get her mental health and substance use under control if she had housing. discuss referral to rehab, then possibility of retirement house after that. pt states she needs to work saturday bcse she has child support to pay and so only wants to go to a respite she can work from, or discharge saturday so she can work the weekend and then go to respite on saturday. asks for STD testing. c/o insomnia asks for trazodone dosing to be increased to 200. per staff, not scoring on CIWA. taking meds, c/o racing thoughts, SI, cravings. worsened depression. left ear infection with drum perforation. slept about 7 hours. Mental Status Exam Mental Status Exam Narrative: Appearance: wearing casual clothing, good hygiene, in NAD Behavior: superficially cooperative Psychomotor: no agitation or retardation noted TP: linear TC: no signs of psychosis Mood: not assessed SI: none expressed HI: none expressed VH/AH: none expressed Insight/judgment: poor x 2. Memory/cog: alert, oriented x 3. grossly intact to conversational testing. Diagnostics Vital Signs (24Hr): Vital Signs - 24 hr 11/17/23 20:15 11/18/23 06:00 Temperature 97.9 F 98.5 F Pulse Rate 93 95 Respiratory Rate 16 14 Blood Pressure 123/72 135/75 Pulse Oximetry 96 98 Oxygen Delivery Method Room Air Room Air BMI result Body Mass Index 37.1 Labs 11/13/23 05:44 11/13/23 05:44 Medications Medications Current Medications Acetaminophen (Acetaminophen 325 Mg Tablet) 650 mg PO Q6H PRN PRN Reason: Headache/Pain Mild Scale (1-3) Last Admin: 11/15/23 23:45 Dose: 650 mg Al Hydroxide/Mg Hydroxide (Magnesium Hydrox/Alum Hydrox 30 Ml Oral.Susp) 30 ml PO Q6H PRN PRN Reason: Heartburn/Nausea Last Admin: 11/16/23 01:57 Dose: 30 ml Buprenorphine/Naloxone (Buprenorphine/Naloxone 8/2 Mg Film) 1 film SUBLINGUAL BID@0800,1800 GABRIELA Last Admin: 11/18/23 08:23 Dose: 1 film Diphenhydramine HCl (Diphenhydramine Hcl 25 Mg Capsule) 50 mg PO Q6H PRN PRN Reason: Itching Last Admin: 11/18/23 09:12 Dose: 50 mg Hydrocortisone (Hydrocortisone 1 % Cream 28.35 Gm Tube) 1 appl TOPICAL BID GABRIELA; Protocol Last Admin: 11/18/23 09:13 Dose: 1 appl Hydroxyzine HCl (Hydroxyzine Hcl 50 Mg Tablet) 50 mg PO Q4H PRN PRN Reason: Anxiety Last Admin: 11/18/23 04:06 Dose: 50 mg Ibuprofen (Ibuprofen 600 Mg Tablet) 600 mg PO Q6H PRN PRN Reason: Pain, Moderate(Pain Scale 4-6) Last Admin: 11/17/23 17:49 Dose: 600 mg Magnesium Hydroxide (Milk Of Magnesia 30 Ml Oral.Susp) 30 ml PO DAILY PRN PRN Reason: Constipation Nicotine Polacrilex (Nicotine Polacrilex 2 Mg Gum) 4 mg BUCCAL Q2H PRN PRN Reason: Nicotine Cravings Olanzapine (Olanzapine 5 Mg Tablet) 5 mg PO DAILY PRN PRN Reason: agitation Last Admin: 11/17/23 22:13 Dose: 5 mg Olanzapine (Olanzapine 10 Mg Tablet) 10 mg PO BEDTIME GABRIELA Last Admin: 11/17/23 20:32 Dose: 10 mg Prednisone (Prednisone 1 Mg Tablet) 4 mg PO TID GABRIELA Stop: 11/18/23 14:59 Last Admin: 11/18/23 08:22 Dose: 4 mg Tobramycin Sulfate (Tobramycin Sulfate 0.3% Milvia Op 5 Ml Btl) 2 drop EYE-LEFT TID GABRIELA Stop: 11/22/23 14:59 Last Admin: 11/18/23 08:24 Dose: 2 drop Topiramate (Topiramate 25 Mg Tablet) 25 mg PO BEDTIME GABRIELA Last Admin: 11/17/23 20:32 Dose: 25 mg Trazodone HCl (Trazodone Hcl 50 Mg Tablet) 50 mg PO BEDTIME PRN PRN Reason: Insomnia Trazodone HCl (Trazodone Hcl 100 Mg Tablet) 200 mg PO BEDTIME GABRIELA Allergies Allergies Allergy/AdvReac Type Severity Reaction Status Date / Time No Known Allergies Allergy Verified 11/17/23 16:13 Assessment & Plan Assessment & Plan (1) PTSD (post-traumatic stress disorder): Status: Acute Code(s): F43.10 - Post-traumatic stress disorder, unspecified (2) Opioid use disorder: Status: Acute Code(s): F11.90 - Opioid use, unspecified, uncomplicated (3) Cannabis use disorder: Status: Acute Code(s): F12.90 - Cannabis use, unspecified, uncomplicated (4) Cocaine use disorder: Status: Acute Code(s): F14.10 - Cocaine abuse, uncomplicated (5) Alcohol use disorder: Status: Acute Code(s): F10.90 - Alcohol use, unspecified, uncomplicated (6) PCP (phencyclidine) abuse: Status: Acute Code(s): F16.10 - Hallucinogen abuse, uncomplicated Plan ativan per [facility] protocol for alcohol use. suboxone for opioid use disorder. restart prior psych regimen. supportive care for withdrawal from other substances. refer for rehab. 11/15: no changes 11/16: no changes 11/17: increase trazodone to 200 mg QHS for insomnia. STD testing ordered. wants to DC to respite and/or on saturday. Reason for continued inpatient stay Substantial Risk for: inability to function and rapid decompensation Time Spent With Patient Time: Total time managing care of this patient today __25__ minutes.
[2023-11-18 19:57] VITALS: BP 127/66; PULSE 100; RESP 18; TEMP 36.7; O2SAT 97
[2023-11-18] MEDS: OLANZapine 10 MG TABLET PO (20:37)
[2023-11-18] MEDS: traZODone HCL 100 MG TABLET 200 MG PO (20:37)
[2023-11-18] MEDS: Topiramate 25 MG TABLET PO (20:37)
[2023-11-19 06:00] VITALS: BP 112/66; PULSE 82; RESP 16; TEMP 36.9; O2SAT 99
[2023-11-19] MEDS: Buprenorphine/Naloxone 8/2 mg FILM 1 FILM SUBLINGUAL ×2 (08:17→17:40)
[2023-11-19] MEDS: Tobramycin Sulfate 0.3% Sol Op 5 ML BTL 2 DROP EYE-LEFT ×3 (08:18→21:12)
[2023-11-19 09:22] LABS: HIV AB/AG Nonreactive (Nonreactive); HIV Num 1 0.07 S/CO (0.00-0.99); ~Hepatitis C Antibody Nonreactive (Nonreactive)
[2023-11-19 09:25] LABS: Syphilis Screen Nonreactive (Nonreactive)
[2023-11-19] MEDS: Diclofenac Sodium Delayed Rel 75 MG TABLET.DR PO ×2 (13:19→17:40)
--- NOTE | 2023-11-19 16:49 | P.PNPSI_ITS ---
Subjective Subjective Date of Service: 11/19/23 Reason For Visit: SI/SUBSTANCE ABUSE Interim History: calm, cooperative. wants contact info for sober houses and rooming houses. slept OK last night. needs PCP, therapy, psych prescriber. asking for diclofenac, which is prescribed, and ibuprofen DCed. per staff, taking meds. not attending groups. no SI/HI. no SIBI. craving, drug dreams. slept about 9 hours. Mental Status Exam Mental Status Exam Narrative: Appearance: wearing casual clothing, good hygiene, in NAD Behavior: superficially cooperative Psychomotor: no agitation or retardation noted TP: linear TC: no signs of psychosis Mood: not assessed SI: none expressed HI: none expressed VH/AH: none expressed Insight/judgment: poor x 2. Memory/cog: alert, oriented x 3. grossly intact to conversational testing. Diagnostics Vital Signs (24Hr): Vital Signs - 24 hr 11/18/23 19:57 11/19/23 06:00 Temperature 98.1 F 98.4 F Pulse Rate 100 82 Respiratory Rate 18 16 Blood Pressure 127/66 112/66 Pulse Oximetry 97 99 Oxygen Delivery Method Room Air Room Air BMI result Body Mass Index 37.1 Labs 11/13/23 05:44 11/13/23 05:44 Labs: Laboratory Results - last 48 hr 11/18/23 13:57 T.pallidum Ab (EIA) Nonreactive Hepatitis C Ab (EIA) Nonreactive HIV 1&2 Ab/P24 Ag 4thGn Nonreactive Medications Medications Current Medications Acetaminophen (Acetaminophen 325 Mg Tablet) 650 mg PO Q6H PRN PRN Reason: Headache/Pain Mild Scale (1-3) Last Admin: 11/15/23 23:45 Dose: 650 mg Al Hydroxide/Mg Hydroxide (Magnesium Hydrox/Alum Hydrox 30 Ml Oral.Susp) 30 ml PO Q6H PRN PRN Reason: Heartburn/Nausea Last Admin: 11/16/23 01:57 Dose: 30 ml Buprenorphine/Naloxone (Buprenorphine/Naloxone 8/2 Mg Film) 1 film SUBLINGUAL BID@0800,1800 [facility] Last Admin: 11/19/23 08:17 Dose: 1 film Diclofenac Sodium (Diclofenac Sodium Delayed Rel 75 Mg Tablet.Dr) 75 mg PO BIDWM [facility] Last Admin: 11/19/23 13:19 Dose: 75 mg Diphenhydramine HCl (Diphenhydramine Hcl 25 Mg Capsule) 50 mg PO Q6H PRN PRN Reason: Itching Last Admin: 11/18/23 20:43 Dose: 50 mg Hydrocortisone (Hydrocortisone 1 % Cream 28.35 Gm Tube) 1 appl TOPICAL BID GABRIELA; Protocol Last Admin: 11/19/23 08:19 Dose: Not Given Hydroxyzine HCl (Hydroxyzine Hcl 50 Mg Tablet) 50 mg PO Q4H PRN PRN Reason: Anxiety Last Admin: 11/18/23 20:43 Dose: 50 mg Magnesium Hydroxide (Milk Of Magnesia 30 Ml Oral.Susp) 30 ml PO DAILY PRN PRN Reason: Constipation Nicotine Polacrilex (Nicotine Polacrilex 2 Mg Gum) 4 mg BUCCAL Q2H PRN PRN Reason: Nicotine Cravings Olanzapine (Olanzapine 5 Mg Tablet) 5 mg PO DAILY PRN PRN Reason: agitation Last Admin: 11/17/23 22:13 Dose: 5 mg Olanzapine (Olanzapine 10 Mg Tablet) 10 mg PO BEDTIME GABRIELA Last Admin: 11/18/23 20:37 Dose: 10 mg Tobramycin Sulfate (Tobramycin Sulfate 0.3% Milvia Op 5 Ml Btl) 2 drop EYE-LEFT TID GABRIELA Stop: 11/22/23 14:59 Last Admin: 11/19/23 15:31 Dose: 2 drop Topiramate (Topiramate 25 Mg Tablet) 25 mg PO BEDTIME GABRIELA Last Admin: 11/18/23 20:37 Dose: 25 mg Trazodone HCl (Trazodone Hcl 50 Mg Tablet) 50 mg PO BEDTIME PRN PRN Reason: Insomnia Trazodone HCl (Trazodone Hcl 100 Mg Tablet) 200 mg PO BEDTIME [facility] Last Admin: 11/18/23 20:37 Dose: 200 mg Allergies Allergies Allergy/AdvReac Type Severity Reaction Status Date / Time No Known Allergies Allergy Verified 11/17/23 16:13 Assessment & Plan Assessment & Plan (1) PTSD (post-traumatic stress disorder): Status: Acute Code(s): F43.10 - Post-traumatic stress disorder, unspecified (2) Opioid use disorder: Status: Acute Code(s): F11.90 - Opioid use, unspecified, uncomplicated (3) Cannabis use disorder: Status: Acute Code(s): F12.90 - Cannabis use, unspecified, uncomplicated (4) Cocaine use disorder: Status: Acute Code(s): F14.10 - Cocaine abuse, uncomplicated (5) Alcohol use disorder: Status: Acute Code(s): F10.90 - Alcohol use, unspecified, uncomplicated (6) PCP (phencyclidine) abuse: Status: Acute Code(s): F16.10 - Hallucinogen abuse, uncomplicated Plan ativan per [facility] protocol for alcohol use. suboxone for opioid use disorder. restart prior psych regimen. supportive care for withdrawal from other substances. refer for rehab. 11/15: no changes 11/16: no changes 11/17: increase trazodone to 200 mg QHS for insomnia. STD testing ordered. wants to DC to respite and/or on saturday. 11/18: slept well. STID testing neg/pending. continue current mgmt. Reason for continued inpatient stay Substantial Risk for: harm to self, inability to function and rapid decompensation Time Spent With Patient Time: Total time managing care of this patient today _25___ minutes.
[2023-11-19 19:30] VITALS: BP 114/71; PULSE 96; RESP 16; TEMP 36.9; O2SAT 98
[2023-11-19] MEDS: traZODone HCL 100 MG TABLET 200 MG PO (20:14)
[2023-11-19] MEDS: OLANZapine 10 MG TABLET PO (20:15)
[2023-11-19] MEDS: Topiramate 25 MG TABLET PO (20:15)
[2023-11-19] MEDS: diphenhydrAMINE HCL 25 MG CAPSULE 50 MG PO (20:50)
[2023-11-19] MEDS: traZODone HCL 50 MG TABLET PO (20:51)
[2023-11-20 06:00] VITALS: BP 109/57; PULSE 78; RESP 16; TEMP 36.4; O2SAT 98
[2023-11-20] MEDS: Diclofenac Sodium Delayed Rel 75 MG TABLET.DR PO ×2 (08:15→17:30)
[2023-11-20] MEDS: Buprenorphine/Naloxone 8/2 mg FILM 1 FILM SUBLINGUAL ×2 (08:16→17:30)
[2023-11-20] MEDS: Tobramycin Sulfate 0.3% Sol Op 5 ML BTL 2 DROP EYE-LEFT ×2 (08:16→14:40)
[2023-11-20 12:41] LABS: BV Int Neg Control Negative (Negative); BV Int Pos Control Positive (Positive)
--- NOTE | 2023-11-20 15:02 | P.PNPSI_ITS ---
Subjective Subjective Date of Service: 11/20/23 Reason For Visit: SI/SUBSTANCE ABUSE Interim History: upbeat, stable. discussing the various dispo options she is exploring with SW. making lots of calls. per staff, cheerful, pleasant. taking meds. some anxiety re discharge. PRN trazodone and benadryl last NOC. slept 9 hours. Mental Status Exam Mental Status Exam Narrative: Appearance: wearing casual clothing, good hygiene, in NAD Behavior: cooperative Psychomotor: no agitation or retardation noted TP: linear TC: no signs of psychosis Mood: upbeat SI: none expressed HI: none expressed VH/AH: none expressed Insight/judgment: fair x 2. Memory/cog: alert, oriented x 3. grossly intact to conversational testing. Diagnostics Vital Signs (24Hr): Vital Signs - 24 hr 11/19/23 19:30 11/20/23 06:00 Temperature 98.5 F 97.5 F Pulse Rate 96 78 Respiratory Rate 16 16 Blood Pressure 114/71 109/57 L Pulse Oximetry 98 98 Oxygen Delivery Method Room Air Room Air BMI result Body Mass Index 37.1 Labs 11/13/23 05:44 11/13/23 05:44 Labs: Laboratory Results - last 48 hr 11/18/23 11/19/23 13:57 12:37 T.pallidum Ab (EIA) Nonreactive Jessica species DNA Positive A Gardnerella DNA Probe Negative Hepatitis C Ab (EIA) Nonreactive HIV 1&2 Ab/P24 Ag 4thGn Nonreactive Trichomonas DNA Probe Negative Medications Medications Current Medications Acetaminophen (Acetaminophen 325 Mg Tablet) 650 mg PO Q6H PRN PRN Reason: Headache/Pain Mild Scale (1-3) Last Admin: 11/15/23 23:45 Dose: 650 mg Al Hydroxide/Mg Hydroxide (Magnesium Hydrox/Alum Hydrox 30 Ml Oral.Susp) 30 ml PO Q6H PRN PRN Reason: Heartburn/Nausea Last Admin: 11/16/23 01:57 Dose: 30 ml Buprenorphine/Naloxone (Buprenorphine/Naloxone 8/2 Mg Film) 1 film SUBLINGUAL BID@0800,1800 [facility] Last Admin: 11/20/23 08:16 Dose: 1 film Diclofenac Sodium (Diclofenac Sodium Delayed Rel 75 Mg Tablet.Dr) 75 mg PO BIDWM [facility] Last Admin: 11/20/23 08:15 Dose: 75 mg Diphenhydramine HCl (Diphenhydramine Hcl 25 Mg Capsule) 50 mg PO Q6H PRN PRN Reason: Itching Last Admin: 11/19/23 20:50 Dose: 50 mg Hydrocortisone (Hydrocortisone 1 % Cream 28.35 Gm Tube) 1 appl TOPICAL BID GABRIELA; Protocol Last Admin: 11/20/23 08:20 Dose: Not Given Hydroxyzine HCl (Hydroxyzine Hcl 50 Mg Tablet) 50 mg PO Q4H PRN PRN Reason: Anxiety Last Admin: 11/18/23 20:43 Dose: 50 mg Magnesium Hydroxide (Milk Of Magnesia 30 Ml Oral.Susp) 30 ml PO DAILY PRN PRN Reason: Constipation Nicotine Polacrilex (Nicotine Polacrilex 2 Mg Gum) 4 mg BUCCAL Q2H PRN PRN Reason: Nicotine Cravings Olanzapine (Olanzapine 5 Mg Tablet) 5 mg PO DAILY PRN PRN Reason: agitation Last Admin: 11/17/23 22:13 Dose: 5 mg Olanzapine (Olanzapine 10 Mg Tablet) 10 mg PO BEDTIME GABRIELA Last Admin: 11/19/23 20:15 Dose: 10 mg Tobramycin Sulfate (Tobramycin Sulfate 0.3% Milvia Op 5 Ml Btl) 2 drop EYE-LEFT TID GABRIELA Stop: 11/22/23 14:59 Last Admin: 11/20/23 14:40 Dose: 2 drop Topiramate (Topiramate 25 Mg Tablet) 25 mg PO BEDTIME GABRIELA Last Admin: 11/19/23 20:15 Dose: 25 mg Trazodone HCl (Trazodone Hcl 50 Mg Tablet) 50 mg PO BEDTIME PRN PRN Reason: Insomnia Last Admin: 11/19/23 20:51 Dose: 50 mg Trazodone HCl (Trazodone Hcl 100 Mg Tablet) 200 mg PO BEDTIME GABRIELA Last Admin: 11/19/23 20:14 Dose: 200 mg Allergies Allergies Allergy/AdvReac Type Severity Reaction Status Date / Time No Known Allergies Allergy Verified 11/17/23 16:13 Assessment & Plan Assessment & Plan (1) PTSD (post-traumatic stress disorder): Status: Acute Code(s): F43.10 - Post-traumatic stress disorder, unspecified (2) Opioid use disorder: Status: Acute Code(s): F11.90 - Opioid use, unspecified, uncomplicated (3) Cannabis use disorder: Status: Acute Code(s): F12.90 - Cannabis use, unspecified, uncomplicated (4) Cocaine use disorder: Status: Acute Code(s): F14.10 - Cocaine abuse, uncomplicated (5) Alcohol use disorder: Status: Acute Code(s): F10.90 - Alcohol use, unspecified, uncomplicated (6) PCP (phencyclidine) abuse: Status: Acute Code(s): F16.10 - Hallucinogen abuse, uncomplicated Plan ativan per [facility] protocol for alcohol use. suboxone for opioid use disorder. restart prior psych regimen. supportive care for withdrawal from other substances. refer for rehab. 11/15: no changes 11/16: no changes 11/17: increase trazodone to 200 mg QHS for insomnia. STD testing ordered. wants to DC to respite and/or on saturday. 11/18: slept well. STID testing neg/pending. continue current mgmt. 11/19: rpr, HIV, Hep C neg. NG/CT pending. upbeat, making lots of calls re aftercare. continue current mgmt. Reason for continued inpatient stay Substantial Risk for: inability to function and rapid decompensation Time Spent With Patient Time: Total time managing care of this patient today __25__ minutes.
[2023-11-20 20:00] VITALS: BP 130/72; PULSE 98; RESP 16; TEMP 36.9; O2SAT 98
[2023-11-20] MEDS: diphenhydrAMINE HCL 25 MG CAPSULE 50 MG PO (20:31)
[2023-11-20] MEDS: traZODone HCL 100 MG TABLET 200 MG PO (20:32)
[2023-11-20] MEDS: traZODone HCL 50 MG TABLET PO (20:33)
[2023-11-20] MEDS: OLANZapine 10 MG TABLET PO (20:33)
[2023-11-20] MEDS: Topiramate 25 MG TABLET PO (20:33)
[2023-11-21] MEDS: hydrOXYzine HCL 50 MG TABLET PO ×2 (04:48→21:14)
[2023-11-21 06:00] VITALS: BP 128/69; PULSE 89; RESP 16; TEMP 36.5; O2SAT 98
[2023-11-21 06:18] LABS: CT PCR NOT DETECTED (Not Detect.); NG PCR NOT DETECTED (Not Detect.)
[2023-11-21 07:00] VITALS: BMI 39.1
[2023-11-21] MEDS: Diclofenac Sodium Delayed Rel 75 MG TABLET.DR PO ×2 (08:17→17:06)
[2023-11-21] MEDS: Buprenorphine/Naloxone 8/2 mg FILM 1 FILM SUBLINGUAL ×2 (08:17→18:08)
[2023-11-21] MEDS: Tobramycin Sulfate 0.3% Sol Op 5 ML BTL 2 DROP EYE-LEFT ×3 (08:26→21:12)
[2023-11-21] MEDS: Venlafaxine HCl ER 37.5 MG CAP.ER.24H PO (15:02)
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
[2023-11-21] MEDS: Milk of Magnesia 30 ML ORAL.SUSP PO (17:28)
[2023-11-21 21:00] VITALS: BP 141/80; PULSE 94; RESP 16; TEMP 37.1; O2SAT 98
[2023-11-21] MEDS: Hydrocortisone 1 % Cream 28.35 GM TUBE 1 APPL TOPICAL (21:12)
[2023-11-21] MEDS: Fluconazole 100 MG TABLET PO (21:12)
[2023-11-21] MEDS: traZODone HCL 100 MG TABLET 200 MG PO (21:13)
[2023-11-21] MEDS: Topiramate 25 MG TABLET PO (21:14)
[2023-11-21] MEDS: OLANZapine 10 MG TABLET PO (21:14)
[2023-11-21] MEDS: traZODone HCL 50 MG TABLET PO (21:14)
[2023-11-22 08:10] VITALS: BP 117/58; PULSE 91; RESP 14; TEMP 36.9; O2SAT 96
[2023-11-22] MEDS: Hydrocortisone 1 % Cream 28.35 GM TUBE 1 APPL TOPICAL (08:28)
[2023-11-22] MEDS: Venlafaxine HCl ER 37.5 MG CAP.ER.24H PO (08:28)
[2023-11-22] MEDS: Tobramycin Sulfate 0.3% Sol Op 5 ML BTL 2 DROP EYE-LEFT (08:28)
[2023-11-22] MEDS: Diclofenac Sodium Delayed Rel 75 MG TABLET.DR PO (08:28)
[2023-11-22] MEDS: Buprenorphine/Naloxone 8/2 mg FILM 1 FILM SUBLINGUAL (08:28)
== END 2023-11-22 08:50 | disposition home or self-care (01) | DRG 755 ==
LOC: HO.ED 18:44 → HO.PADLT16 11-14 13:21
PROVIDERS: Admitting Provider Psychiatry & Neurology Psychiatry; Emergency Provider Emergency Medicine; Visit Provider Psychiatry & Neurology Psychiatry
DX: F43.12 Post-traumatic stress disorder, chronic (principal); R45.851 Suicidal ideations; F11.90 Opioid use, unspecified, uncomplicated; F14.10 Cocaine abuse, uncomplicated; F16.10 Hallucinogen abuse, uncomplicated; H60.92 Unspecified otitis externa, left ear; H72.92 Unspecified perforation of tympanic membrane, left ear; F12.90 Cannabis use, unspecified, uncomplicated; Z59.01 Sheltered homelessness; Z62.810 Personal history of physical and sexual abuse in childhood; Z20.822 Contact with and (suspected) exposure to COVID-19; Z79.899 Other long term (current) drug therapy
CPT/HCPCS: 0353U; 36415; 80053; 80061; 80143; 80179; 80307; 81001; 82248; 82607; 82746; 83036; 84439; 84443; 85025; 86780; 86803; 87086; 87389; 87480; 87510; 87635; 87660; 93005; 97161; 99285; S9485

== ENCOUNTER → 2023-11-14 10:34 | Outpatient (BNV) | payer MEDICAID, SELFPAY | PROVIDERS: Admitting Provider Psychiatry & Neurology Psychiatry; Emergency Provider Emergency Medicine; Visit Provider Internal Medicine Cardiovascular Disease | DX: I49.9 Cardiac arrhythmia, unspecified (principal) | CPT/HCPCS: 93010 ==

== ENCOUNTER → 2023-11-14 13:07 | Outpatient (BNV) | payer OTHER, SELFPAY | PROVIDERS: Admitting Provider Psychiatry & Neurology Psychiatry; Emergency Provider Emergency Medicine; Visit Provider Psychiatry & Neurology Psychiatry | DX: F14.10 Cocaine abuse, uncomplicated (principal); F43.11 Post-traumatic stress disorder, acute; F11.90 Opioid use, unspecified, uncomplicated; F12.90 Cannabis use, unspecified, uncomplicated | CPT/HCPCS: 99231; 99232; 99233 ==